=== PATIENT | female | born 1940 | race Caucasian/White ===

== ENCOUNTER 2024-05-27 05:49 | Inpatient (IN) | payer MEDICARE, SELFPAY ==
[2024-05-27] VITALS (42 sets, daily range): BP systolic 69–118; BP diastolic 44–78
[2024-05-27 01:31] LABS: Hematocrit 23.4 % (37.0-47.0); Hemoglobin 8.2 g/dL (12.0-16.0); Mean Corpuscular Hgb 30.4 pg (27.0-31.0); Mean Corpuscular Volume 86.7 fL (81.0-99.0); Platelet Count 119 10^3/uL (130-400); White Blood Cell Count 6.6 10^3/uL (4.8-10.8)
--- NOTE | 2024-05-27 01:38 | EDRN ---
Upon arrival, pt's R ACW dialysis catheter had no dressing. Diane Bentley RN applied tegaderm over site. Pt has a decubitus on sacrum - dressing wet with ramirez/red tinged drainage that was leaking onto pt's diaper. Pt incontinent small amount stool -
perineal care provided. This RN removed dirty packing from sacral wound, placed sterile 4x4s wet with sterile NS in wound and applied optifoam dressing on top. Clean diaper placed. Pt propped on R side with pillow and pillow placed between her
legs. Pt on 4 lpm O2 at all times per report. This RN attempted insertion of IV and blood draw - unable to maintain IV, obtained 2 tubes of blood only. Pressure dressing applied.
[2024-05-27 01:53] LABS: Blood Urea Nitrogen 14 mg/dl (7-17); Calcium 8.2 mg/dl (8.4-10.2); Carbon Dioxide 17 mmol/L (22-30); Chloride 103 mmol/L (98-107); Glucose 84 mg/dl (70-99); Sodium 129 mmol/L (135-145); eGFR 27.96
--- NOTE | 2024-05-27 02:43 | ED.GENMED ---
History of Present Illness
General
Chief Complaint: Heart Rate Problem
Source: ambulance crew
Exam Limitations: dementia
Time Seen by Provider: 05/27/24 02:19
Nursing documentation reviewed up to this point in time: agreed with
History of Present Illness
History of Present Illness:
Per nursing treatment supervisor who called back after leaving several messages, patient was found to have a heart rate in the 30s to low 40s. Blood pressure was also hypotensive at 70/50. Was given atropine by medics. Heart rate came up. Patient does
have a dementia has chronic kidney disease on dialysis. She is on 4 L/min via nasal cannula. She has been hyponatremic lately. She has chronic anemia. History is limited due to patient's baseline mental status.
Review of Systems
Review of Systems
Unable to obtain full review of systems at this time due to: dementia
Other source history: retirement and transfer record
Constitutional: Reports fatigue
Cardiac: Reports palpitations
Psychiatric: Reports anxiety
Phy Exam
General Physical Exam
General Presentation: no apparent distress
General age: appears stated age
General Habitus: elderly
General Mental: confused and usual mental status
General Hydration: appears well hydrated
Cardiovascular Exam
Cardiovascular Exam: regular rate/rhythm
Musculoskeletal Exam
Musculoskeletal Exam: full ROM
Skin Exam
Skin Exam: normal color and warm/dry
Psychiatric Exam
Psychiatric Exam: normal mood/affect
Course
Orders/Labs/Results
Orders:
Orders
05/27/24 00:30
EKG [Electrocardiogram (*1)] Urgent
Reason for Study: Bradycardia / Tachycardia
05/27/24 00:31
EKG- Treatment ONCE
05/27/24 01:20
Basic Metabolic Panel Urgent
Complete Blood Count/With Diff Urgent
Manual Differential Urgent
05/27/24 02:28
Electrocardiogram (*1) Urgent
Reason for Study: Abnormal EKG
EKG- Treatment ONCE
05/27/24 02:43
0.9% Sodium Chloride 500 ml [Nss] 500 ml IV BOLUS
Abnormal Lab Results
05/27/24
01:20
RBC 2.70 L 10^6/uL
(4.20-5.40)
Hgb 8.2 L g/dL
(12.0-16.0)
Hct 23.4 L %
(37.0-47.0)
RDW 18.0 H %
(11.5-14.5)
Plt Count 119 L 10^3/uL
(130-400)
MPV 12.0 H fL
(7.4-10.4)
Segmented Neutrophils 79 H %
(42-75)
Band Neutrophils 17 H %
(0-3)
Lymphocytes (Manual) 1 L %
(20-51)
Sodium 129 L mmol/L
(135-145)
Carbon Dioxide 17 L mmol/L
(22-30)
Creatinine 1.8 H mg/dL
(0.6-1.0)
Calcium 8.2 L mg/dl
(8.4-10.2)
05/27/24 01:20
05/27/24 01:20
Vital Signs
Initial and Last Documented VS:
Initial Vital Signs
Temp Pulse Resp BP Pulse Ox
98.6 F 69 14 82/49 100
05/27/24 01:11 05/27/24 01:11 05/27/24 01:11 05/27/24 01:11 05/27/24 01:11
Last Documented Vital Signs
Temp Pulse Resp BP Pulse Ox
98.6 F 59 18 81/52 100
05/27/24 01:11 05/27/24 04:00 05/27/24 04:00 05/27/24 03:54 05/27/24 02:00
*Critical Care Note
Total Time (30-74mins, 75-104mins- exclusive of procedures): Not Applicable
Update Note
Update Note:
Attempts to call [facility] to get more of the history unsuccessful. Phone goes straight to voicemail after several rings
ED Attending Note
-
Portions of this chart may have been created with voice recognition software.� Occasional wrong word or��sound alike� substitutions may have occurred due to the inherent limitations of voice recognition software.
Discharge Plan
Departure
Patient Disposition: Admit
Date of Disposition: 05/27/24
Time of Disposition: 04:27
Admit to: Telemetry
Presentation/result/management discussed w/ accepting MD/DO: Hospitalist
Discharge Problem:
Symptomatic bradycardia, Anemia, Acute hyponatremia, Acute hypotension
Prescriptions:
No Action
lidocaine 4 % Adhesive Patch,Medicated
1 patch TOPICAL DAILY
Rx Instructions:
apply to L hip
carvedilol [Coreg] 3.125 mg Tablet
3.125 mg PO BID
levothyroxine 75 mcg Tablet
75 mcg PO DAILY
pantoprazole [Protonix] 40 mg Tablet,Delayed Release (Dr/Ec)
40 mg PO DAILY
acetaminophen [Tylenol] 325 mg Tablet
650 mg PO Q6H PRN (Reason: mild pain)
bisacodyl 10 mg Suppository
10 mg UT DAILY PRN (Reason: constipation)
Vashe 0.033 % Irrigation Solution
1 irrig IRRIGATION DAILY PRN (Reason: to buttocks)
Referrals:
Kevyn Tatum MD [Family Provider] -
Interventions
Interventions:
*Risk Screen - Suicide Last Done: 05/27/24 00:32
*General Assessment Last Done: 05/27/24 00:32
*Neglect/Abuse Screening Last Done: 05/27/24 00:32
ED- Fall Risk Assessment Last Done: 05/27/24 01:34
*ED COVID-19 Vaccine History Last Done: 05/27/24 00:32
ED- Cardiac Assessment Last Done: 05/27/24 01:34
ED- Pulmonary Assessment Last Done: 05/27/24 01:34
Discharge Date and Time
Print Language: ISRAELI
[2024-05-27] MEDS: NSS 500 IV (02:55)
[2024-05-27 03:05] LABS: Absolute Neutrophils -Man Diff 6.3 10^3/uL (1.4-6.5); Anisocytosis 1+; Atypical Lymphocytes 1 %; Band Neutrophils 17 % (0-3); Lymphocytes 1 % (20-51); Metamyelocytes 2 % (-); Normal RBC Morphology No; Segmented Neutrophils 79 % (42-75)
[2024-05-27 03:07] LABS: Total Cells Counted 100; Toxic Granulation 1+
[2024-05-27 03:08] LABS: Ovalocytes Occasional
[2024-05-27 03:10] LABS: Acanthocytes Occasional; Schistocytes Occasional; Target Cells 2+
[2024-05-27 03:11] LABS: Platelets Checked Yes
--- NOTE | 2024-05-27 04:02 | EDRN ---
Difficult to obtain BPs because pt has her arms pulled up to her chest and it is difficult to get her to straighten them and to hold still for BP. Attempted BP on leg without success. Pt with unintelligible mumbles. Pt can occasionally answer yes
and no. Pt's oxygen and pulse ox off. Reapplied O2 at 4 lpm, left pulse ox off pt's finger as pt does not keep it on long. Pt repositioned onto L side - pillow between legs and warm blankets provided.
--- NOTE | 2024-05-27 05:09 | HPS.HSE ---
Family Physician
-
Family Physician: Kevyn Tatum MD
Chief Complaint
-
Bradycardia and hypotension
History of Present Illness
Patient is a 83-year-old female with extensive past medical history was brought to the emergency department via EMS from custodial after she was found to be bradycardic and hypotensive.
Patient unable to provide history. She has dementia. History obtained from chart records and from son. She is known to have history of CKD and recently started on dialysis in April, dysphagia, GERD, hypertension hyperlipidemia, chronic atrial
fibrillation
Not anticoagulated, recent admission at [facility] in April for sepsis after a prior admission for hip fracture.
Patient history over the last 1 years been complicated. She has no dementia son reports that the dementia has gotten worse and the patient is mostly alert but not oriented. She occasionally will not recognize the son. Some days are better than
others. She was initially admitted to [facility] for a bowel perforation in July 2013. She had a prolonged hospital course and developed a sacral decubitus ulcer. The sacral decubitus ulcer did heal after discharge from the hospital. In
March she had a hip fracture requiring surgery. After surgery the patient was transferred to rehab. From rehab she developed sepsis and was transferred to [facility] in April. She had sepsis, multiple pulmonary emboli, ABBEY that
developed into ESRD and was started on hemodialysis. For the pulmonary emboli the patient had a IVC filter placed. She received antibiotics and pressors and ultimately improved and was discharged from the hospital to [facility] for rehab. She
gets dialysis Tuesday.
After discussing with the PMD, was told that it was suggested to the son to make the patient do not transfer to hospital/hospice. However the son was not ready. I told me that she has had a significant decline over the 1 year but prior to that had
been in much better health status.
The initial/preceding events prior to being found bradycardic and hypotensive tensive are unknown. She is on Coreg for atrial fibrillation. She is not on any other rate agent. With son reported that he saw her yesterday and she was responsive.
Per EMS the patient was found to be bradycardic to 40 and had a blood pressure of 74/50, after 1 of atropine heart rate went up to 82 with a blood pressure of 110/70. She was immediately transferred to the emergency department. She was also
hypoxic to 84% while she was bradycardic but with a heart rate improvement she is no longer hypoxic.
Initial evaluation in the emergency department showed a blood pressure of 81/50, pulse was 60, respiratory to 18, temp 98.6. ECG showed atrial fibrillation with right bundle at a rate of 59. Initial labs showed a CBC with a white count of 6.6 with
17% bands, hemoglobin was 8.2 and a platelet count [place] 9119, sodium was 129, other electrolytes are acceptable with potassium hemolyzed and repeat pending, BUN and creatinine were 14 and 1.8. Last dialysis was Tuesday 2 days ago.
Medical History
Past Medical History
Past Medical History: Reports Arrhythmia (atrial fibrillation), Dementia, GERD, Hypercholesterolemia, Hypothyroidism and Renal Failure (on HD M/W/F)
Additional Past Medical History:
Bowel perforation s/p resection
Past Surgical History: Reports Bowel Resection and Orthopedic (hip fracture s/p surgery)
Social History
Unable to obtain full social history at this time due to: Dementia
Living: Penitentiary
Employment: Retired
Family History
Family History: Not pertinent
Allergies / Home Medications
Allergies reflects when Allergies were last updated in [employer].
Home Medications with original date entered in [employer]
Allergy/Medication List:
Allergies
Allergy/AdvReac Type Severity Reaction Status Date / Time
atorvastatin Allergy Unknown Verified 05/27/24 00:44
Home Medications
acetaminophen 325 mg tablet (Tylenol) 650 mg PO Q6H PRN mild pain 05/27/24
bisacodyl 10 mg rectal suppository 10 mg UT DAILY PRN constipation 05/27/24
carvedilol 3.125 mg tablet (Coreg) 3.125 mg PO BID 05/27/24
levothyroxine 75 mcg tablet 75 mcg PO DAILY 05/27/24
lidocaine 4 % topical patch 1 patch topical DAILY 05/27/24
pantoprazole 40 mg tablet,delayed release (Protonix) 40 mg PO DAILY 05/27/24
sodium chloride-hypochlorous acid 0.033 % irrigation solution (Vashe) 1 irrig irrigation DAILY PRN to buttocks 05/27/24
Review of Systems
-
Unable to obtain full review of systems at this time due to: Dementia
Physical Exam
Vital Signs
Vital Signs
Temp Pulse Resp BP Pulse Ox
98.6 F 59 18 81/52 100
05/27/24 01:11 05/27/24 04:00 05/27/24 04:00 05/27/24 03:54 05/27/24 02:00
Physical Exam
General: Pain and Appears Chronically Ill
HEENT: NormoCephalic, Anicteric, Atraumatic, PERRLA and No Ptosis; No Oxygen
Cardiac: S1/S2 and Bradycardia
Breast: Deferred by me
GI: Soft, Non Tender, Non Distended and Normal Bowel Sounds
Rectal: Deferred by Provider
Genito-urinary: Deferred by me
Musculoskeletal: No Clubbing, No Cyanosis and No Edema
Skin: Ulcers (10 cm diameter sacral ulcer, stage IV, no drainage, necrotic skin surrounding wound )
Neuro: Awake and Oriented (NOT oriented to person, place or time)
Hematologic/Lymphatic: No Lymphadenopathy
Psych: Apparent Dementia
Laboratory Results
-
05/27/24 01:20
05/27/24 01:20
Laboratory Results
Total Bilirubin Cancelled 05/27/24 01:20
AST Cancelled 05/27/24 01:20
ALT Cancelled 05/27/24 01:20
Alkaline Phosphatase Cancelled 05/27/24 01:20
Troponin I Cancelled 05/27/24 00:42
Data Reviewed
-
Medical Tests (Nuc Med, Echo, EKG etc): Image Personally Visualized and interpreted
Lab Data: Labs Reviewed by me
Old Records: Reviewed
Impression/Plan
-
IMPRESSION:
83 y.o with history of ESRD on HD, AFIB not on AC, PEs s/p IVC filter, GERD, dementia and a rapidly declining health status over one year due to multiple prolonged hospitalizations for a perforated bowel, hip surgery and sepsis presents from nursing
home having been found hypotensive and bradycardic. Responded well to atropine. MAP > 60 here in ED. Afebrile and without focal deficits. Has no complaints. ECG with junctional rhythm/afib at 59. Na 129, K hemolyzed. Bicarb 17, normal AG.
CBC notable for 17% bands, Hgb 8.2. Not sure the etiology of the bradycardia at this point.
PLAN:
1. Bradycardia - No rythm of even available. ECG currently with junctional rhythm/afib at 59. She is on coreg and appeared to have responded to atropine. Discussed with son that patient with dementia, large decubitus non-healing ulcer and h/o PEs
not on AC is not a candidate for pacemaker placements. We hope to correct metabolic factors that may contribute to bradycardia while supporting her bp in the interim. He understood and declined invasive measures such as temp ppm, central lines or
pressors.
- admit to imu
- atropine prn symptomatic bradycardia
- if atropine ineffective or needs repeating, we can start levophed/epinephrine though not a bridge to ppm
- holding coreg
- repeat lytes now for K and mag
- check tsh
- rule out and tx infection as below.
2. Bandemia/Hypotension - Patient with dialysis, has a large sacral wound, minimal urine output. Unclear if sepsis. Maintaining bp currently.
- assume sepsis,
- give LR 500 ml x 1
- blood cultures, urine cultures, viral panel, check lactate level and procalction. Chest Xray
- empiric abx with 1 dose of vanc and zosyn given wound
3. Sacral wound -
- wound care consult, may need surgery to look but unlikely a surgical candidate
4. AFIB
- not on AC, hold beta blockade for bradycardia
5. ESRD - non AG metabolic acidosis. Repeat K pending.
- plan for HD tomorrow depending on K
- appears euvolemic
- nephrology consult
Consider palliative care consult
DVT PPX - heparin sq
Code status - DNR/DNI
--- NOTE | 2024-05-27 05:24 | EDRN ---
VAT paged for new blood orders/iv.
[2024-05-27 05:47] LABS: Urine Albumin 3+ (Neg - Trace); Urine Bilirubin Negative (Negative); Urine Character Cloudy (Clear); Urine Glucose Negative (Negative); Urine Ketone Negative (Negative); Urine Leukocyte 3+ (Negative); Urine Nitrite Negative (Negative); Urine Occult Blood 4+ (Negative); Urine Urobilinogen Negative (Neg - 1+)
[2024-05-27 05:49] LABS: Urine Color Yellow
[2024-05-27 05:54] LABS: COVID-19 Antigen Negative (Negative)
[2024-05-27 06:19] LABS: INR 1.12; PT 14.7 Sec (11.4-14.6)
[2024-05-27 06:24] LABS: Lactic Acid 1.2 mmol/L (0.7-2.0)
[2024-05-27] MEDS: ZOSYN 50 IV ×3 (06:25→18:52)
[2024-05-27 06:30] LABS: ALT (SGPT) 146 U/L (0-35); AST (SGOT) 277 U/L (14-36); Albumin 2.4 g/dl (3.5-5.0); Alkaline Phosphatase 999 U/L (38-126); Blood Urea Nitrogen 15 mg/dl (7-17); Calcium 8.3 mg/dl (8.4-10.2); Carbon Dioxide 20 mmol/L (22-30); Chloride 104 mmol/L (98-107); Direct Bilirubin 4.8 mg/dl (0.0-0.4); Glucose 60 mg/dl (70-99); Magnesium 1.9 mg/dl (1.6-2.3); Potassium 4.7 mmol/L (3.5-5.1); Sodium 130 mmol/L (135-145); Total Bilirubin 6.2 mg/dl (0.2-1.3); Total Protein 4.9 g/dl (6.3-8.2)
[2024-05-27 06:31] LABS: Urine Mucus Many
[2024-05-27 06:32] LABS: Urine Amorphous Seen; Urine Bacteria Many (Negative); Urine Squamous Cell >30 /LPF (Few); Urine White Cell >100 /HPF (0-5)
[2024-05-27 06:36] LABS: Urine Urothelial Cell >30 /LPF (FEW)
[2024-05-27 06:37] LABS: Urine Yeast SEEN (Negative)
[2024-05-27 06:38] LABS: Procalcitonin 1.17 ng/ml (0.0-0.25)
--- NOTE | 2024-05-27 06:38 | EDRN ---
No VAT tonight. This RN started #20g R forearm and obtained additional admission lab work as ordered. This RN then obtained second set blood cultures from R forearm using butterfly needle. Pressure dressing applied. Placed pulse ox on pt's
finger, able to obtain one reading and pt promptly removed it. BP cuff placed on pt's upper R arm (L arm is edematous) - pt unable to hold still for bp reading. Tried to hold pt's arm as still as possible for reading and once obtained removed cuff
since it agitates pt. Pt supine with pillow under lower extremities. Despite being placed supine, pt moves toward left and her head is near stretcher railing so pillow placed to cushion pt head behind and on L side.
[2024-05-27 07:23] LABS: Free T4 1.26 ng/dl (0.78-2.19)
[2024-05-27] MEDS: VANCOCIN 530 MG IV (07:42)
[2024-05-27] MEDS: LR 1000 IV (08:43)
--- NOTE | 2024-05-27 09:07 | PHA.VAN.IN ---
Assessment
- Assessment
Renal Function: Appears elevated from baseline (Scr 1.9)
Concomitant Antimicrobials: Piperacillin/Tazobactam
AUC Dosing Plan
- Empiric Dosing
Initial / Loading Dose: Vanco 1500mg Loading Given on 05/27/24 at 0742
Maintenance Regimen: Dose by level
Plan
- Plan
Monitoring: Random Level 05/28/24 0600
Pharmacokinetics Vancomycin I
- -
Patient Age: 83
Patient Sex: Female
Vancomycin Day #: 1
Indication: Gi / Intra-Abdominal
Requesting Provider: Shahnaz Marshall
Pertinent Antimicrobial Allergies:
No Known Antibiotics Allergies
Height / Weight:
Actual Weight 59.8 kg
- Vital Signs / Lab Results
Temp Pulse Resp BP Pulse Ox
98.6 F 62 16 80/61 100
05/27/24 01:11 05/27/24 07:37 05/27/24 07:37 05/27/24 07:37 05/27/24 07:37
Lab Results - Hematology
05/27/24
01:20
WBC 6.6
Band Neutrophils 17 H
Lab Results - Chemistry
05/27/24 05/27/24 05/27/24
01:20 05:54 05:54
BUN 14 15
Creatinine 1.8 H 1.9 H
Albumin Cancelled Cancelled 2.4 L
05/27/24
05:54
Lactic Acid 1.2
Lab Results - Urine
05/27/24
04:59
Urine Nitrite (Reflex) Negative
Leukocyte Esterase Rfl 3+ A
Urine WBC (Reflex) >100 A
Ur Squamous Epith Cells >30
Urine Bacteria (Reflex) Many A
Microbiology Results
05/27/24 05:28 Influenza Types A & B (DARLEEN) - Final
Nasal Swab Influenza A Positive, NAAT
--- NOTE | 2024-05-27 13:05 | W.PN.UPDATE ---
Addendum entered and electronically signed by Cesar Marshall MD 05/27/24 14:18:
stop continuous fluids
lr bolus as needed
speech eval
Original Note:
Update Note
Progress Note Update
Patient has questionable UTI along with influenza A; ? Infected Wound; obvious sepsis
� Start antibiotics empirically, follow-up MRSA PCR; initiate Tamiflu; follow-up cultures including blood and urine. Judicious IV fluids understanding is HD player; lactate 1.2
-Wound care
-F/u RUQ Sono
Hyponatremia
� Monitor with resuscitation
#ESRD
� Consult HD/renal
#Transaminitis
� Follow-up abdominal ultrasound
� No grimace to palpation upon palpation of the abdomen
#Bradycardia
� Can hold off on cardiology consult secondary to sepsis for now
� TSH elevated although free T4 within normal limits; can restart IV Synthroid after 5 days if cannot tolerate p.o.
� Hold beta-lori
#Sacral wound
� Wound care consult
#Atrial fibrillation
Hold AV mazin blockade
� Not on AC
Discussion of goals of care, hospice appropriate; prognosis poor
#DVT prophylaxis
� HSQ
Total time spent on today's encounter was 51 minutes which included time spent in counseling the patient/family regarding diagnosis and treatment plan as listed above, goals of care, and symptom management. Case was discussed with nursing staff,
specialists, and care coordinators/case management. All labs and imaging personally reviewed by me. Remainder the time spent in detailed review of previous records, lab data, imaging, and other medical provider documentation.
[2024-05-27] MEDS: NSS (PRESERVATIVE FREE) 10 ML IV (13:47)
[2024-05-27] MEDS: PROTONIX IV 40 MG IV (13:47)
[2024-05-27] MEDS: HEPARIN 5000 UNITS SC (13:48)
--- NOTE | 2024-05-27 14:21 | W.CON.NEPH ---
Consultation
-
Date/Time Consultation Requested: May 27, 2024 at 12 PM
Date/Time Consultation Performed: May 27, 2024 at 2 PM
Requesting Provider: Dr. Marshall
Performing Provider: Dr. Troy Chan
Reason for Consultation: End-stage renal disease
Medical History
-
Chief Complaint: Hypotension
History of Present Illness:
83-year-old female with extensive past medical history was brought to the emergency department via EMS from snf after she was found to be bradycardic and hypotensive.
Patient unable to provide history. She has dementia. History obtained from chart records . She is known to have history of CKD and recently started on dialysis in April, dysphagia, GERD, hypertension hyperlipidemia, chronic atrial fibrillation
Not anticoagulated, recent admission at [facility] in April for sepsis after a prior admission for hip fracture.
Apparently from reviewing , she developed sepsis and was transferred to [facility] in April. She had sepsis, multiple pulmonary emboli, ABBEY that developed into ESRD and was started on hemodialysis. For the pulmonary emboli the patient had a
IVC filter placed. She received antibiotics and pressors and ultimately improved and was discharged from the hospital to [facility] for rehab. She gets dialysis Tuesday.
Renal consult for dialysis management.
Past Medical History
h CKD and recently started on dialysis in April, dysphagia, GERD, hypertension hyperlipidemia, chronic atrial fibrillation
Not anticoagulated,
Social History
Tobacco: Non-Smoker
Alcohol: None
Family History
Family History: Not Pertinent
Allergies / Home Medications
Allergy/AdvReac Type Severity Reaction Status Date / Time
atorvastatin Allergy Unknown Verified 05/27/24 00:44
�Medication �Instructions �Recorded �Confirmed �Type
acetaminophen 325 mg tablet 650 mg PO Q6HPRN PRN mild pain 05/27/24 05/27/24 History
(Tylenol)
bisacodyl 10 mg rectal suppository 10 mg GA DAILYPRN PRN constipation 05/27/24 05/27/24 History
carvedilol 3.125 mg tablet (Coreg) 3.125 mg PO BID 05/27/24 05/27/24 History
levothyroxine 75 mcg tablet 75 mcg PO DAILY 05/27/24 05/27/24 History
lidocaine 4 % topical patch 1 patch topical DAILY 05/27/24 05/27/24 History
pantoprazole 40 mg tablet,delayed 40 mg PO DAILY 05/27/24 05/27/24 History
release (Protonix)
sodium chloride-hypochlorous acid 1 irrig irrigation DAILY to 05/27/24 05/27/24 History
0.033 % irrigation solution (Vashe) buttocks
sodium chloride-hypochlorous acid 1 irrig irrigation DAILYPRN PRN 05/27/24 05/27/24 History
0.033 % irrigation solution (Vashe) wound soilage
Review of Systems
-
Unable to obtain full review of systems at this time due to: Dementia and Acuity
Physical Exam
Vital Signs
Vital Signs
Temp Pulse Resp BP Pulse Ox
98.6 F 62 16 80/61 100
05/27/24 01:11 05/27/24 07:37 05/27/24 07:37 05/27/24 07:37 05/27/24 07:37
Lab Results
WBC 6.6 10^3/uL (4.8-10.8) 05/27/24 01:20
RBC 2.70 10^6/uL (4.20-5.40) L 05/27/24 01:20
Hgb 8.2 g/dL (12.0-16.0) L 05/27/24 01:20
Hct 23.4 % (37.0-47.0) L 05/27/24 01:20
Plt Count 119 10^3/uL (130-400) L 05/27/24 01:20
Sodium 130 mmol/L (135-145) L 05/27/24 05:54
Potassium 4.7 mmol/L (3.5-5.1) 05/27/24 05:54
Chloride 104 mmol/L (98-107) 05/27/24 05:54
Carbon Dioxide 20 mmol/L (22-30) L 05/27/24 05:54
BUN 15 mg/dl (7-17) 05/27/24 05:54
Creatinine 1.9 mg/dL (0.6-1.0) H 05/27/24 05:54
eGFR 26.20 05/27/24 05:54
Glucose 60 mg/dl (70-99) L 05/27/24 05:54
Calcium 8.3 mg/dl (8.4-10.2) L 05/27/24 05:54
Kas-Z-Mzgybczjyrm Pept Cancelled 05/27/24 00:42
Albumin 2.4 g/dl (3.5-5.0) L 05/27/24 05:54
Albumin Cancelled 05/27/24 05:54
Physical Exam
HEENT: EOMI
Respiratory: Rhonchi
Cardiac: S1/S2
Abdomen: Soft
Musculoskeletal: No Cyanosis and No Edema
Skin: No Rash
Neuro: Other (Minimal response to verbal or tactile stimuli)
Hematologic/Lymphatic: No Cervical Lymphadenopathy
Psych: Other (Chronic dementia)
Vascular Access: CVC
Data Reviewed
-
Radiology: Image Personally Visualized and interpreted (Interstitial prominence with small pleural effusion left)
Labs: Labs Reviewed by me
Assessment/Plan
-
83-year-old female with extensive past medical history was brought to the emergency department via EMS from snf after she was found to be bradycardic and hypotensive.
History obtained from chart records She is known to have history of CKD and recently started on dialysis in April, dysphagia, GERD, hypertension hyperlipidemia, chronic atrial fibrillation
Not anticoagulated, recent admission at [facility] in April for sepsis after a prior admission for hip fracture.
Impression.
ESRD.
Bradycardia and hypotension.
Sepsis and possible UTI.
Transaminitis= likely hemodynamically mediated.
Chronic atrial fibrillation.
Positive influenza A.
Plan.
Chronic dialysis Tuesday via [facility] since April 2024 per records.= Receives dialysis at [facility]
Continue antibiotics/antiviral.
Okay with IV fluids as indicated for hemodynamics. And monitor pulmonary status.
Dialysis ordered for tomorrow will adjust ultrafiltration based on clinical status.
Goals of care to be discussed.
[2024-05-27] MEDS: LR 500 IV (14:43)
--- NOTE | 2024-05-27 15:00 | PTCARENOTE ---
Pt arrived to floor on stretcher from ED. Pt currently non-verbal, does not track, and does not follow commands - Hx of Dementia, but not Pt's baseline. Pulled over to bed without issue. LR @ 75ml's/hr infusing into RFA; 500ml LR bolus started
as per transfer orders. BP's soft, 71/61 with MAP of 66. Provider notified and will provide pressors if MAP < 65. Scattered bruising noted with large sacral decub packed and covered with silicone foam dressing. Unable to get oral or axillary
temp; Rectal temp = 90.9; Orders for vanessa hugger obtained. Bed alarm on, call rolle within reach. Will continue to monitor and assess.
[2024-05-27] MEDS: LEVOPHED 250 IV (18:40)
[2024-05-27] MEDS: HEPARIN SC (19:57)
[2024-05-28] VITALS (67 sets, daily range): BP systolic 71–143; BP diastolic 34–96
[2024-05-28] MEDS: ZOSYN 50 IV ×4 (00:57→22:04)
--- NOTE | 2024-05-28 02:27 | PTCARENOTE ---
Rec'd pt. minimally responsive at beginning of shift, NSR, Levophed infusing at 5 mcg/min. MAPS remained consistently >65 x 4 hours; attempted to wean down Levo to 4 mcg at midnight but pt. did not tolerate (MAP dropped to 56); increased back to 5
mcg/min at 0040 and pressure has since held. Temperature also up to 97.6 at beginning of shift, vanessa hugger removed, temps remain >97. Of note pt. has become more alert over course of night, moans, groans, does not like to be touched, moving arms
frequently. B/L rhonchi present with moist occasional cough, pulse ox on 2L mid 90's, suctioned for clear secretions. Resting quietly.
[2024-05-28] MEDS: LEVOPHED 250 IV (07:32)
[2024-05-28] MEDS: NSS (PRESERVATIVE FREE) 10 ML IV (07:59)
[2024-05-28] MEDS: PROTONIX IV 40 MG IV (07:59)
[2024-05-28] MEDS: HEPARIN 5000 UNITS SC ×2 (07:59→22:17)
--- NOTE | 2024-05-28 08:47 | VATNOTE ---
L arm swelling noted by pt's primary RN. Pt has capped IV in L arm. L arm IV D/C'd and U/S requested for L arm. IV restarted in R arm. Will continue to monitor.
[2024-05-28 08:53] LABS: Hematocrit 21.4 % (37.0-47.0); Mean Corp Hgb Conc. 32.7 g/dL (33.0-37.0); Mean Corpuscular Hgb 29.8 pg (27.0-31.0); Mean Corpuscular Volume 91.1 fL (81.0-99.0); Mean Platelet Volume 9.9 fL (7.4-10.4); Platelet Count 108 10^3/uL (130-400); Red Blood Cell Count 2.35 10^6/uL (4.20-5.40); Red Cell Dist. Width 18.8 % (11.5-14.5); White Blood Cell Count 12.3 10^3/uL (4.8-10.8)
[2024-05-28 09:05] LABS: Vancomycin Random 11.9 ug/ml
--- NOTE | 2024-05-28 09:25 | PTOTSP ---
Dysphagia Evaluation
Patient inappropriate for oral PO at this time due to a combination of wet vocal quality with difficulty clearing secretions, confusion, and refusal/oral defensiveness. Acute on chronic risk factors noted (i.e., UTI?, influenza A, PNA, sepsis;
dementia, dysphagia, GERD).
Plan of care:
1. Temporary NPO
2. Medications - non-oral
3. Oral care 3-5x daily with suctioning
4. Aspiration Risk Hydration Protocol - inappropriate
5. Dysphagia tx at the acute care level to determine if/when able to initiate diet pending GOC.
--- NOTE | 2024-05-28 09:38 | W.PN.HOSP.TC ---
Today's Communication/Plan
-
see note
GI/GS/ID consult
poor prognosis, ongoing GOC discussion
Assessment / Plan
Assessment / Plan
1. Sepsis with septic shock
Gram-negative bacteremia
-Possible source of urinary tract infection versus sacral decubitus vs HD cath infection
-Currently on Zosyn
-Follow blood culture report
-Patient requiring Levophed support, wean off as possible
-ID has been asked for further help
2. ESRD on hemodialysis
-Recently started in May 05
-Nephrology following and based on clinical findings/lab we will hold dialysis today
3. Acute normocytic anemia
Reported PUD/perf
-Reported history of perforated gastric ulcer last year, records requested from previous hospital
-Hemoglobin drifted down to 7 today, 1 unit PRBC ordered
-Monitor for any GI blood loss
-Not on AC
4. Influenza A infection
-CXR reviewed
-unable to take oral tamiflu
5. Hypoglycemia
-Sepsis/decreased oral intake related
-D50 followed by D10 ordered for low blood glucose in the morning, repeat periodic accuchecks
6. Left sided pleural effusion
-Per verbal report from family this is a known finding
-Chest x-ray reviewed and possible component of trapped lung
-Will order further testing based on previous hospital records review
7. Stage IV Sacral decubitus - POA
-See wound RN note for further detail
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
-Poor prognosis
8. UTI
-covered with zosyn, f/u urine cs report
9. R/o Chronic cholecystitis
Acute transaminitis
Jaundice - direct dominant
-GB US showing hydropic GB
-CBD 9.5mm
-GS/GI consulted and likely will need cholecystostomy tube
DNR
Heparin subq
05/28 GOC discussion done over the phone with patient's son, who is still hopeful that patient will improve. I have clarified that patient had a multitude of medical issues ongoing and with overall downward trend in quality of life patient getting
appropriate to be on hospice. Plan to rediscuss based on patient clinical course.
Prognosis is poor in my opinion.
Total critical care time 43 mins . Total critical care time documented does not include time spent on separately billed procedures or the services of residents, students, nurses or physician assistants. I personally saw and examined the patient. I
have reviewed all diagnostic interpretations and treatment plans as written. I was present for the arroyo portions of any procedures performed and the inclusive time noted in any critical care statement. Critical care time includes patient management
by me, time spent at the patients bedside, time to review lab and imaging results, discussing patient care, documentation in the medical record, and time spent with the family or caregiver.
Anticipated Discharge: > 48 hours
Subjective/Interval History
-
Date of Service: May 28, 2024
Remains encephalopathic
Hypoglycemic in the morning
Requires vasopressor for blood pressure support
No reported melena
Objective Data
-
Labs:
Laboratory Results
05/28/24
08:40
WBC 12.3 H
Hgb 7.0 L
Hct 21.4 L
Plt Count 108 L
Sodium Pending
Potassium Pending
Chloride Pending
Carbon Dioxide Pending
BUN Pending
Creatinine Pending
Glucose Pending
Calcium Pending
Total Bilirubin Pending
AST Pending
ALT Pending
Alkaline Phosphatase Pending
Vital Signs:
Vital Signs
Temp Pulse Resp BP Pulse Ox
97.4 F 74 18 78/47 93
05/28/24 07:29 05/28/24 08:48 05/28/24 08:48 05/28/24 08:52 05/28/24 08:48
I&O
0205/28/24 05/29/24
06:59 06:59 06:59
Intake Total 500 / 500 320 / 320
Output Total 250 / 250
Balance 250 / 250 320 / 320
Review of Systems
-
Unable to obtain full review of systems at this time due to: Acuity
Physical Exam
-
General: Comfortable
HEENT: Negative Oxygen
Respiratory: Clear to Auscultation
Cardiac: Regular Rhythm and S1/S2; Negative Murmur or Rub
GI: Soft, Nontender and Nondistended
Musculoskeletal: No Edema
Neuro: Negative Oriented
Psych: Confused
[2024-05-28 09:41] LABS: ALT (SGPT) 209 U/L (0-35); AST (SGOT) 399 U/L (14-36); Albumin 2.3 g/dl (3.5-5.0); Alkaline Phosphatase 1013 U/L (38-126); Blood Urea Nitrogen 16 mg/dl (7-17); Calcium 8.5 mg/dl (8.4-10.2); Carbon Dioxide 17 mmol/L (22-30); Chloride 103 mmol/L (98-107); Glucose 51 mg/dl (70-99); Magnesium 1.9 mg/dl (1.6-2.3); Potassium 4.2 mmol/L (3.5-5.1); Sodium 130 mmol/L (135-145); Total Bilirubin 7.2 mg/dl (0.2-1.3); Total Protein 4.7 g/dl (6.3-8.2); eGFR 20.83
--- NOTE | 2024-05-28 09:56 | WOUNDNOTE ---
R CALF (LATERAL LOWER)
--- NOTE | 2024-05-28 10:00 | WOUNDNOTE ---
[facility] RN note: Patient admitted with symptomatic bradycardia. Patient admitted from [facility].
See H&P for complete history.
PMH: dementia, CKD on HD, dysphagia, HTN, A fib, hospital stay at [facility] for sepsis, hip fracture, IVC filter, sacral pressure injury.
Wound Location and type/assessment: Patient admitted with: large stage 4 pressure injury probes to bone, pink with black necrotic tissue and local erythema and stage 2 pressure injuries. R lower lateral calf DTI. R posterior thigh and R groin
bruise. +Anasarca. R wrist scabbed dermal abrasion. Upper ear crease red and intact. Mild alize MASD.
Appetite: NPO. ST on consult.
Pressure redistribution devices in place: Centrella Max air bed. Patient cannot turn self in bed.
Plan: Sacral dressing changed. Patient turned to R semi side lying position with help from BONNIE Patel. Heels off bed with pillow and air chair cushion. Dr. Huang was in who assess sacral ulcer. Suspect possible sacral osteomyelitis d/t bone
exposure. Hospitalist approved local care. Discussed with BONNIE Patel. Dr. Huang to discuss goals with son.
Care plan to be updated and will follow as needed.
Note to case management of equipment requested for discharge: Air mattress if not already in place at SNF.
Recommend follow up at wound care center upon discharge if appropriate.
--- NOTE | 2024-05-28 10:10 | CON.ID ---
Consultation
-
Date/Time Consultation Requested: 05/28/2024 0928
Date/Time Consultation Performed: 05/28/2024 1005
Requesting Provider: Dr. Huang
Performing Provider: Dr. Vera
Reason for Consultation: Bacteremia
Chief Complaint / Past History
History of Present Illness
Jo Noland is an 83-year-old female being evaluated at the request of Dr. Ferris in regards to bacteremia. History is obtained from chart review alone as patient has an underlying history of dementia.
The patient has a complex medical history that includes ESRD�HD, dementia along with atrial fibrillation. She presented to [facility] ER on 05/27, having been sent on by her shelter secondary to bradycardia in the 30s at the facility.
At the time of evaluation by EMS her blood pressure was low (74/50) and pulse was in the 40s.
Workup in the emergency room revealed positive influenza A testing. Blood cultures obtained at the time of admission are now positive for gram-negative rods, and Infectious Diseases is asked to comment on further antimicrobial therapy.
Past History
Additional Past Medical History:
A-fib
Dementia
GERD
Dyslipidemia
Hypothyroidism
ESRD on HD (M/W/F)
Additional Past Surgical History:
Hx bowel resection
IVC filter
Hip fracture
Allergy History:
atorvastatin Allergy (Verified 05/27/24 00:44)
Unknown
Medications Reviewed: Yes
Social History
Living: [facility]
Employment: Not Employed
Family History
Family History: Unable to Obtain
Review of Systems
Vital Signs
Temp Pulse Resp BP Pulse Ox
97.4 F 74 18 78/47 93
05/28/24 07:29 05/28/24 08:48 05/28/24 08:48 05/28/24 08:52 05/28/24 08:48
Physical Exam
Physical Exam
Constitutional: Comfortable, Acutely Ill, Chronically Ill and Non-toxic
Head: Normocephalic
Eyes: Pupils Equal, Pupils Round, No Conjunctival Hemorrhage and Sclera Anicteric
Cardiovascular: Regular Rate and S1/S2; Negative S3/S4
Pulmonary: Symmetric, Coarse and Non Labored
Gastrointestinal: Soft, Non Tender, Non Distended and Normal Bowel Sounds
Genito-Urinary: Negative Shrestha
Extremities: Negative Edema, Cyanosis or Erythema
Wound: Other (large stage IV sacral decubidi with dermal necrosis noted in several areas. Positive significant malodor.)
Neurological: Other (Responsive to touch.)
Psychological: Calm and Confused
.
Lab / Diagnostic Study Results
05/28/24 08:40
05/28/24 08:40
Total Counted 100 05/27/24 01:20
Abs Neuts (Manual) 6.3 10^3/uL (1.4-6.5) 05/27/24 01:20
Segmented Neutrophils 79 % (42-75) H 05/27/24 01:20
Band Neutrophils 17 % (0-3) H 05/27/24 01:20
Lymphocytes (Manual) 1 % (20-51) L 05/27/24 01:20
PT 14.7 Sec (11.4-14.6) H 05/27/24 05:54
INR 1.12 05/27/24 05:54
Lactic Acid 1.2 mmol/L (0.7-2.0) 05/27/24 05:54
Procalcitonin 1.17 ng/ml (0.0-0.25) H 05/27/24 05:54
Ur Squamous Epith Cells >30 /LPF (Few) 05/27/24 04:59
Microbiology Results
Micro:
05/27/24 06:21 Blood Culture - Preliminary
Blood/Venous Positive culture in progress
Gram Stain - Preliminary
05/27/24 05:54 Blood Culture - Preliminary
Blood/Venous Positive culture in progress
Gram Stain - Preliminary
05/27/24 18:37 MRSA Screen - Pending
Nose
05/27/24 06:03 Nasal Screen MRSA (PCR) - Final
Nose MRSA not detected - performed by PCR methodology.
05/27/24 05:28 Influenza Types A & B (DARLEEN) - Final
Nasal Swab Influenza A Positive, NAAT
05/27/24 04:59 Urine Culture - Pending
Urine
Imaging:
05/27/2024 CXR (portable): Moderate to large left pleural effusion with probable underlying compressive atelectasis in the left lower lung. Mild acute versus chronic interstitial airway disease at the right lung base.
Assessment / Plan
Influenza A infection
Leukocytosis
Bacteremia with gram-negative rods
� Sources include right ACW HD cath, large sacral decubiti, other
Transaminitis
Elevated procalcitonin
Large partially necrotic sacral decubidi
A-fib
Dementia
GERD
Dyslipidemia
Hypothyroidism
ESRD on HD (M/W/F)
Recommendation:
Continue with oseltamavir. Given depressed mental status, may require NG/Dobbhoff administration.
Continue with empiric Zosyn. Dose is appropriate for hemodialysis.
Discontinue further vancomycin for the present. Can add back if MRSA recovered.
Consider general surgery evaluation for wound debridement.
Await further culture data to guide antimicrobial therapy selection and potential de-escalation
Local care to the sacral wound for now.
Trend LFTs
Agree with discussions of goals of care.
Given current clinical presentation of patient (dementia, large sacral decub (which has little chance of ever closing)), patient appears hospice appropriate.
Aggressive medical care will not change overall quality of life in any meaningful way.
[2024-05-28] MEDS: DEXTROSE 50% SYRINGE 12.5 GRAMS IV (10:11)
[2024-05-28 10:38] LABS: Glucose - Point of Care 117 mg/dl (70-99)
[2024-05-28] MEDS: D10W 1000 IV (11:07)
--- NOTE | 2024-05-28 12:22 | W.PN.NEPH.PH ---
Today's Communication / Plan
-
HD postponed to tomorrow due to unstable hemodynamics
Assessment/Plan
-
83-year-old female with extensive past medical history was [facility] after she was found to be bradycardic and hypotensive.
History obtained from chart records She is known to have history of CKD and recently started on dialysis in April, dysphagia, GERD, hypertension hyperlipidemia, chronic atrial fibrillation
Not anticoagulated, recent admission at [facility] in April for sepsis after a prior admission for hip fracture.
Impression.
ESRD.
Bradycardia and hypotension.
Sepsis and possible UTI.
Transaminitis= likely hemodynamically mediated.
Chronic atrial fibrillation.
Positive influenza A.
Anemia
Plan.
Chronic dialysis Tuesday via [facility] since April 2024 per records.= Receives dialysis at [facility]
due to unstable hemodynamics HD held, will try tomorrow
no emergent need today, lytes acceptable
Continue antibiotics/antiviral per ID
wean pressors as able, ok for PRBC , monitor pulm status on 2lit O2
hypoglycemia on [id number] when BG stabilizes
LFTs increasing likely shock liver, monitor
Goals of care to be discussed-primary team speaking with POA.
high risk encounter
-
-
Date of Service: May 28, 2024
CC / HPI / ROS
-
Chief Complaint:
ESRD
History of Present Illness:
hb low 7-decreasing, plt low 108, BG low 51 his am , D10 started
hypotensive and on pressors
sodium low 1300
flu +ve, bld cx GNB
Review of Systems:
altered and unable to provide history
no fever, on 2lit O2
Labs
-
Labs:
WBC 12.3 10^3/uL (4.8-10.8) H 05/28/24 08:40
RBC 2.35 10^6/uL (4.20-5.40) L 05/28/24 08:40
Hgb 7.0 g/dL (12.0-16.0) L 05/28/24 08:40
Hct 21.4 % (37.0-47.0) L 05/28/24 08:40
Plt Count 108 10^3/uL (130-400) L 05/28/24 08:40
Sodium 130 mmol/L (135-145) L 05/28/24 08:40
Potassium 4.2 mmol/L (3.5-5.1) 05/28/24 08:40
Chloride 103 mmol/L (98-107) 05/28/24 08:40
Carbon Dioxide 17 mmol/L (22-30) L 05/28/24 08:40
BUN 16 mg/dl (7-17) 05/28/24 08:40
Creatinine 2.3 mg/dL (0.6-1.0) H 05/28/24 08:40
eGFR 20.83 05/28/24 08:40
Glucose 51 mg/dl (70-99) L* 05/28/24 08:40
Calcium 8.5 mg/dl (8.4-10.2) 05/28/24 08:40
Umb-D-Dbuamgumjms Pept Cancelled 05/27/24 00:42
Albumin 2.3 g/dl (3.5-5.0) L 05/28/24 08:40
Physical Exam
-
Vital Signs:
Vital Signs
Temp Pulse Resp BP Pulse Ox
97.0 F 75 15 134/70 99
05/28/24 11:53 05/28/24 11:45 05/28/24 11:45 05/28/24 11:45 05/28/24 11:45
Cardiovascular:: Regular rate and rhythm
Respiratory:: Bilateral: Coarse
Lung Excursion:: Abnormal
Abdomen:: Nontender and Soft
Extremity Edema:: +1: Bilateral:
Shrestha Catheter: No
[2024-05-28 12:46] LABS: Glucose - Point of Care 117 mg/dl (70-99)
--- NOTE | 2024-05-28 13:52 | PTCARENOTE ---
Patient placed on vanessa hugger due to rectal temp of 96.[address] Gamal Huang made aware. Care ongoing.
--- NOTE | 2024-05-28 14:21 | CON.GI ---
Addendum entered and electronically signed by Adán Arevalo MD 05/28/24 17:57:
D/w Dr. Huang - dissection stable.
Too unstable for further testing.
Addendum entered and electronically signed by Adán Arevalo MD 05/28/24 17:01:
The patient was seen and examined by me independently in collaboration with the nurse practitioner.
Past medical history/social history/medications/allergies/family history reviewed.
Lab data and imaging data reviewed.
83 yo F multiple medial issues as below here with bradycardia, hypotension, change in MS. Found to have abnormal LFTs US with unremarkable liver, hydropic GB reflecting chronic cholecystitis, CBD top normal with intraluminal sludge. Concern for
biliary source for infection so GI was consulted. D/w Dr. Huang hospitalist and Dr. Savage patient not stable for MRI (hypotensive on pressors, AMS) so sent for CT. Concern for aortic dissection - hospitalist to contact vascular.
Original Note:
Consultation
-
Date/Time Consultation Requested: 05/28/24 1350
Date/Time Consultation Performed: 05/28/24 1420
Requesting Provider: radha Huang MD
Performing Provider: KENNETH Lobato, Samantha Arevalo MD
Reason for Consultation: increased LFT's
Medical History
Chief Complaint / HPI
Chief Complaint: hypotension, change in mental status
History of Present Illness:
Pt is a 83yo with multiple medical issues CHF, AZ, GERD, ischemic CM, dementia , UTI's, cervical mass, anemia, afib not on AC, 05/2023 perf stomach ulcer with repair with compilation of Lower Gi bleed with rectal ulcer with clip and epi during
admission, DVT's, s/p fall with hip fracture 03/2024 ORIF and LE hematoma, PNA, new ESRD with HD with recurrent hospital admission over last year to [facility]. She recently moved to SNF locally due to dialysis and now presents to
with bradycardia, hypotension and change in mental status. . Pt unable to give history. Per son No hx liver issues. Unsure of bacteremia but has had UTI's in past. Hx dysphagia on pureed diet, + GERD on PPI, occasional nausea no vomiting, no
abdominal pain, diarrhea, constipation or rectal bleeding. ? hx EGD after perforation. No hx colonoscopy. No NSAID use or H pylori per family. On return bili 6.2, d bili 4.8, AST 277, ALT 146, alk phos 999. lipase 13 WBC with rise to 12.3
after admission, hbg 7, platelet 108. Na 130, K 4.2, creat 2.3 glucose 51, procal 1.17. US with unremarkable liver, hydropic GB reflecting chronic cholecystitis, CBD top normal with intraluminal sludge. 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
cm, b/l pleural effusion.
05/07/24- [facility] labs with steffanie 1.6, AST15, ALT 10, alk phos 203.
Past Medical History
Past Medical History: Arrhythmias (afib ), CHF, GERD, HTN, Hypercholesterolemia, AZ, Renal Failure (CKD with recent start of HD) and Other (dementia, dysphagia, recent hip fx, PE with filter in place, cervical mass, CM, UTI with noted bacteremia
with proteus/strep with CTX-M gene resistance and U cx + klebsiella )
Past Surgical History: Other (05/2023 perforated stomach ulcer with javier patch repair, complicated by GI bleed with rectal ulcer with clipped and injected with epi)
Social History
Tobacco: Non-Smoker
Alcohol: None
Drug: None
Living: [facility]
Family History
Family History: Other (no hx GI problems- colon CA, polyps, pancreatic or liver issues. )
Allergies / Home Medications
Allergy/AdvReac Type Severity Reaction Status Date / Time
atorvastatin Allergy Unknown Verified 05/27/24 00:44
�Medication �Instructions �Recorded
acetaminophen 325 mg tablet 650 mg PO Q6HPRN PRN mild pain 05/27/24
(Tylenol)
bisacodyl 10 mg rectal suppository 10 mg DC DAILYPRN PRN constipation 05/27/24
carvedilol 3.125 mg tablet (Coreg) 3.125 mg PO BID Blood Pressure 05/27/24
levothyroxine 75 mcg tablet 75 mcg PO DAILY Thyroid 05/27/24
lidocaine 4 % topical patch 1 patch topical DAILY Pain 05/27/24
pantoprazole 40 mg tablet,delayed 40 mg PO DAILY GERD 05/27/24
release (Protonix)
sodium chloride-hypochlorous acid 1 irrig irrigation DAILY to 05/27/24
0.033 % irrigation solution (Vashe) buttocks
sodium chloride-hypochlorous acid 1 irrig irrigation DAILYPRN PRN 05/27/24
0.033 % irrigation solution (Vashe) wound soilage
Review of Systems
-
History Source: Patient and Family
Constitutional: Reports Weight Loss (with multiple admissions)
EENT: Reports No Symptoms
Respiratory: Reports Trouble Breathing (in PNA )
Cardiac: Reports No Symptoms and Chest Pain
Abdomen/GI: Reports Constipated
: Reports Other (new HD )
Musculoskeletal: Reports No Symptoms
Skin: Reports No Symptoms
Neurological: Reports Weakness
Endocrine: Reports No Symptoms
Hematologic/Lymphatic: Reports No Symptoms
Vital Signs
Temp Pulse Resp BP Pulse Ox
96.0 F L 75 27 92/55 96
05/28/24 14:00 05/28/24 14:00 05/28/24 14:00 05/28/24 14:00 05/28/24 14:00
Physical Exam
Exam
General: Other (ill appearing )
HEENT: Normocephalic and Anicteric
Respiratory: Clear
Cardiac: Regular Rhythm
GI: Soft
Skin: Warm and Dry
Neuro: Other (lethargic minimal verbal )
Psych: Calm
Results
WBC 12.3 10^3/uL (4.8-10.8) H 05/28/24 08:40
Hgb 7.0 g/dL (12.0-16.0) L 05/28/24 08:40
Hct 21.4 % (37.0-47.0) L 05/28/24 08:40
MCV 91.1 fL (81.0-99.0) 05/28/24 08:40
Plt Count 108 10^3/uL (130-400) L 05/28/24 08:40
PT 14.7 Sec (11.4-14.6) H 05/27/24 05:54
INR 1.12 05/27/24 05:54
Sodium 130 mmol/L (135-145) L 05/28/24 08:40
Potassium 4.2 mmol/L (3.5-5.1) 05/28/24 08:40
Chloride 103 mmol/L (98-107) 05/28/24 08:40
Carbon Dioxide 17 mmol/L (22-30) L 05/28/24 08:40
BUN 16 mg/dl (7-17) 05/28/24 08:40
Creatinine 2.3 mg/dL (0.6-1.0) H 05/28/24 08:40
Calcium 8.5 mg/dl (8.4-10.2) 05/28/24 08:40
Total Bilirubin 7.2 mg/dl (0.2-1.3) H 05/28/24 08:40
AST 399 U/L (14-36) H 05/28/24 08:40
ALT 209 U/L (0-35) H 05/28/24 08:40
Alkaline Phosphatase 1013 U/L (38-126) H 05/28/24 08:40
Diagnostic Image Results:
05/27/24 US abdomen
Unremarkable sonographic appearance of the liver.
Hydropic gallbladder. Findings, as described, likely reflecting chronic cholecystitis.
The common bile duct is top normal for patient age, with evidence of intraluminal sludge.
Atrophic, echogenic kidneys consistent with history of renal failure. Renal cysts.
Aortic atherosclerosis with diffuse ectasia and mid aortic aneurysm measuring up to 4.6 cm.
Incidental bilateral pleural effusions.
04/15/24 CT angio creswell
Large hematoma in the right medial upper thigh. No sign of active contrast extravasation into the hematoma. Other findings are unchanged from previous exam.
Prior GI Procedures:
EGD: ? with perforated ulcer
Colonoscopy: ? in past
Assessment / Plan
-
Pt is a 83yo with multiple medical issues CHF, AZ, GERD, ischemic CM, dementia , UTI's, cervical mass, anemia, afib not on AC, 05/2023 perf stomach ulcer with repair with compilation of Lower Gi bleed with rectal ulcer with clip and epi during
admission, DVT's, s/p fall with hip fracture 03/2024 ORIF and LE hematoma, PNA, new ESRD with HD with recurrent hospital admission over last year to [facility]. She recently moved to SNF locally due to dialysis and now presents to
with bradycardia, hypotension and change in mental status. Pt unable to give history. Per son No hx liver issues. Unsure of bacteremia but has had UTI's in past. On return bili 6.2, d bili 4.8, AST 277, ALT 146, alk phos 999. lipase 13 WBC
with rise to 12.3 after admission, hbg 7, platelet 108. Na 130, K 4.2, creat 2.3 glucose 51, procal 1.17.
05/07/24- [facility] labs with steffanie 1.6, AST15, ALT 10, alk phos 203.
-sepsis/bacteremia- gram neg /hypothermia/ hypotension
-elevated LFT's
-flu A +
-s/p fall - ORIF hip 03/2024
-hx large hematoma right thigh 04/2024
-ESRD newly on HD
-prior hx UTI with noted bacteremia with proteus/strep with CTX-M gene resistance and U cx + klebsiella-- per epic chart
-perforated gastric ulcer with ex lap grahm patch and Lower GI bleed with rectal ulcer with clip placed 05/2023
PLAN:
etiology of elevated LFT's related to sepsis (with hx prior UTI/bacteremia) , flu related, biliary source vs other
lipase normal
for CT today
reviewed with Dr. Savage
for ID eval
cont NPO
cont IV Zosyn and Tamiflu with + flu
pt remain DNR - reviewed with son pt is critically ill and would not be able to proceed with for MRI or GI testing at this time can consider if improves from sepsis standpoint
reviewed epic chart per son's shareeverywhere access
-
-
Thank you for consultation and allowing me to participate in the patient's care. Please call the software validation technician GI physician during the after hours with any questions or concerns.
[2024-05-28 14:43] LABS: Glucose - Point of Care 125 mg/dl (70-99)
[2024-05-28 14:43] LABS: Lipase 13 U/L (23-300)
--- NOTE | 2024-05-28 14:50 | WOUNDNOTE ---
WOC RN note: t/c [facility], Spoke with nurse Sayda who confirmed patient has an air mattress at [facility].
--- NOTE | 2024-05-28 16:47 | CM ---
Addendum entered by Nicole Rondon RN 05/28/24 17:04:
GOC discussion in progress per Dr Huang's notes.
Addendum entered by Nicole Rondon RN 05/28/24 17:01:
Seen by wound care nurse - will need air mattress at SNF. - Info added to SNF referral.
Original Note:
Patient from [facility] with Hx ESRD on HD, dementia. O2 2L. Receiving IVF, Levophed gtt, IV Abx. ST Eval- NPO. Lethargic, garbled speech per nurse assessment.
Spoke with Michelle, [facility];
the patient was admitted to their SNF recently for short term rehab with the intention for transition to LTC.
The patient has dementia and some confusion.
She was receiving skilled rehab - no further details available about her current mobility.
The patient receives HD MWF.
The for report [phone], fax [phone].
Plan follow patient's progress with for diet.
Plan follow up with patient/son Wu about return to [facility].
Plan return to [facility] when medically ready.
--- NOTE | 2024-05-28 17:19 | W.PN.UPDATE ---
Addendum entered and electronically signed by Gamal Huang MD 05/28/24 17:53:
CTA c/a/p report from [facility]
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 Celiac trunk and mesenteric arteries: No occlusion or significant stenosis. Renal arteries: No occlusion or significant stenosis. Right iliac
arteries: No occlusion or significant stenosis. Left iliac arteries: No occlusion or significant stenosis. '
Addendum entered and electronically signed by Gamal Huang MD 05/28/24 17:46:
Patient son was able to share read access to patient epic chart
Discharge summary reviewed and thoracic and abd aortic aneurysm is known findings.
Holding vasc sx consult and ICU transfer for now.
Original Note:
Update Note
Progress Note Update
Contacted by radiologist re: Ms Noland's CT a/p showing incidental aortic dissection
Acuity is unknown
Discussed with nephro/vasc sc/respiratory care practitioner and son
Plan is to get CTA angio chest/abd/pelvis to better define aortic anatomy
I have discussed with son potential of renal toxicity with need of contrast but without contrast vasc sx will not be able to make any further clear recommendation.
Patient was requiring levophed in the morning for shock and ideally assuming this is a Type B dissection - BB would be used but with shock possibly will need to wean off pressors. SBP apparently in 140-150 after blood transfusion in morning and
currently on levophed 2mcg/min per RN, would wean off with SBP goals < 130.
Further critical care time spent : 35 mins
--- NOTE | 2024-05-28 17:49 | PTCARENOTE ---
Patient AOx0. Patient is lethargic, agitated, flat affect, and uncooperative. Patient has garbled speech. Bed alarm on and audile. 4L NC. NSR with BBB and first degree on monitor. Levo gtt titrated per order. R sided JVD. Rectal temp probe with vanessa
hugger utilized PRN per order. Patient is oliguric due to ESRD. Strict NPO per speech. Wound care completed with wound care nurse. Patient hypoglycemic during shift. Hypoglycemic protocol followed. Call rolle within reach, bed in lowest position, and
bed of wheels locked.
--- NOTE | 2024-05-28 20:27 | CON.GS ---
Consultation
-
Date/Time Consultation Requested: 05/28/2024 3 PM
Date/Time Consultation Performed: 05/28/2024 4 PM
Requesting Provider: Dr. Huang
Performing Provider: Dr. Savage
Reason for Consultation: Distended gallbladder
Medical History
-
Chief Complaint: Altered mental status
History of Present Illness:
This is an 83-year-old female with multiple medical comorbidities including CHF, perforated ulcer, UTI, GERD, ischemic cardiomyopathy, dementia, aortic dissection, cervical mass, DVT, pneumonia, ESRD on hemodialysis, A-fib not on anticoagulation.
She recently had a perforated stomach ulcer for which she had surgical repair followed by what sounds like a lower GI bleed with a rectal ulcer who presents to us from her outside facility with altered mental status and found to have bacteremia as
well as bilirubinemia and elevated LFTs. An ultrasound of the liver demonstrated a hydropic gallbladder and common bile duct dilatation to 9.5 mm without evidence of stone disease. General surgery consulted to comment and possibly manage this.
Unfortunately patient is a very poor historian, and much of my history was obtained from her chart.
Past Medical History
Past Medical History: Other ( See HPI)
Past Surgical History: Other ( See HPI)
Social History
Living: Alf
Family History
Family History: Reviewed & Not Pertinent
Allergies / Home Medications
Allergy/AdvReac Type Severity Reaction Status Date / Time
atorvastatin Allergy Unknown Verified 05/27/24 00:44
�Medication �Instructions �Recorded �Confirmed �Type
acetaminophen 325 mg tablet 650 mg PO Q6HPRN PRN mild pain 05/27/24 05/27/24 History
(Tylenol)
bisacodyl 10 mg rectal suppository 10 mg SD DAILYPRN PRN constipation 05/27/24 05/27/24 History
carvedilol 3.125 mg tablet (Coreg) 3.125 mg PO BID Blood Pressure 05/27/24 05/27/24 History
levothyroxine 75 mcg tablet 75 mcg PO DAILY Thyroid 05/27/24 05/27/24 History
lidocaine 4 % topical patch 1 patch topical DAILY Pain 05/27/24 05/27/24 History
pantoprazole 40 mg tablet,delayed 40 mg PO DAILY GERD 05/27/24 05/27/24 History
release (Protonix)
sodium chloride-hypochlorous acid 1 irrig irrigation DAILY to 05/27/24 05/27/24 History
0.033 % irrigation solution (Vashe) buttocks
sodium chloride-hypochlorous acid 1 irrig irrigation DAILYPRN PRN 05/27/24 05/27/24 History
0.033 % irrigation solution (Vashe) wound soilage
Review of Systems
-
A 10 point review of systems was completed, and was negative except as per HPI.
Physical Exam
Vital Signs
Temp Pulse Resp BP Pulse Ox
97.2 F 67 18 101/64 99
05/28/24 20:20 05/28/24 18:30 05/28/24 18:30 05/28/24 18:16 05/28/24 18:30
05/27/24 05/28/24 05/29/24
06:59 06:59 06:59
Actual Weight 59.8 kg 60.9 kg
Lab Results
05/28/24 08:40
05/28/24 08:40
WBC 12.3 10^3/uL (4.8-10.8) H 05/28/24 08:40
Hgb 7.0 g/dL (12.0-16.0) L 05/28/24 08:40
Hct 21.4 % (37.0-47.0) L 05/28/24 08:40
Plt Count 108 10^3/uL (130-400) L 05/28/24 08:40
Physical Exam
General: Other (Looks uncomfortable writhing in bed. Not answering appropriately.)
GI: Soft, Non Tender and Non Distended
Data Reviewed
-
CT Scan: Image Personally Visualized and interpreted, Report Reviewed by me and Discussed with Physician
Ultrasound: Image Personally Visualized and interpreted, Report Reviewed by me and Discussed with Physician
Labs: Labs Reviewed by me and Discussed with Physician
Total Time Spent with Patient (in minutes): 60
Assessment / Plan
-
This is an 83-year-old female with complex medical history found to have altered mental status and gram-negative bacteremia. LFTs significantly elevated. An ultrasound demonstrated dilated gallbladder as well as CBD indicating an obstruction of
the duct. While choledocholithiasis is certainly possible, an ampullary mass is also certainly in the differential given her age.
No acute surgical intervention warranted at this time. While a hydropic gallbladder could indicate chronic cholecystitis, in the absence of any stone disease it is more likely that their biliary system is under pressure due to distal obstruction.
While cholecystostomy tube can be used to decompress the biliary system in a demented patient who might inadvertently pull it out this may lead to more harm than good.
Would be reasonable to get an MRI though doubt she would be able to lie still enough for us to obtain one. A CT abdomen pelvis with IV contrast may be helpful to ascertain if there is any mass in the ampullary region or stone disease.
I think first and foremost however we should discuss goals of care with the family.
General surgery will follow peripherally, please call with any questions or concerns.
Addendum:
CT scan reviewed, unfortunately performed without contrast so unable to delineate all that much but there is no evidence of stones in the gallbladder or the biliary tree. Unable to evaluate for an ampullary mass but the pancreatic duct does not
appear to be dilated
[2024-05-28] MEDS: DAKIN'S SOLUTION 0.125% 1/4 STRENGTH 473 ML TOPICAL (22:17)
[2024-05-29] VITALS (43 sets, daily range): BP systolic 72–131; BP diastolic 43–89
[2024-05-29] MEDS: D10W 1000 IV ×2 (02:10→18:20)
[2024-05-29 03:23] LABS: Glucose - Point of Care 145 mg/dl (70-99)
--- NOTE | 2024-05-29 04:17 | PTCARENOTE ---
Pt moans and groans when attempting to do oral care. HOB 30 degrees. Suction at bedside. 3L NC in place, moist cough. NSR w/ BBB & 1st degree on tele. She does withdrawal her arms when RN attempts to access IVs and appears to get agitated, otherwise
does not move in bed. Repositioned throughout the night, heels floated. RUE midline with sanguinous dressing on gauze. Right forearm with old infiltration site, warm.. VAT aware and at bedside to visualize. Right tunneled cath dressing intact. Wound
care done to sacrum per orders. Lata kurtisgger utilized for few hours for temp goal >97. Levo gtt stopped, MAPs decreased to 50s so gtt restarted and infusing at this time; refer to worklist. 0300 blood sugar 145. Droplet precautions for +influenza.
Plan for HD today. Rounding q1 hour. Bed alarm set for safety.
[2024-05-29] MEDS: ZOSYN 50 IV ×3 (05:22→22:50)
[2024-05-29] MEDS: PROTONIX IV 40 MG IV (07:54)
[2024-05-29] MEDS: HEPARIN 5000 UNITS SC ×2 (07:54→22:51)
[2024-05-29] MEDS: NSS (PRESERVATIVE FREE) 10 ML IV (07:54)
[2024-05-29] MEDS: DAKIN'S SOLUTION 0.125% 1/4 STRENGTH 473 ML TOPICAL ×2 (07:55→22:51)
[2024-05-29] MEDS: FLEXBUMIN 25% FOR HEMODIALYSIS 12.5 GRAMS IV ×2 (08:20→10:25)
[2024-05-29] MEDS: MANNITOL 25% 12.5 GRAMS IV ×2 (08:25→10:34)
[2024-05-29] MEDS: RETACRIT 10000 UNITS IV (08:41)
--- NOTE | 2024-05-29 08:44 | W.PN.NEPH.PH ---
Today's Communication / Plan
-
HD
Assessment/Plan
-
83-year-old female with extensive past medical history was brought to the emergency department via EMS from detention after she was found to be bradycardic and hypotensive.
History obtained from chart records She is known to have history of CKD and recently started on dialysis in April, dysphagia, GERD, hypertension hyperlipidemia, chronic atrial fibrillation
Not anticoagulated, recent admission at [facility] in April for sepsis after a prior admission for hip fracture.
Impression.
ESRD. [facility] [place]
Bradycardia and hypotension.
Sepsis and possible UTI.
Transaminitis= likely hemodynamically mediated.
Chronic atrial fibrillation.
Positive influenza A.
Anemia
left pleural effusion
Ao dissection, chronic
Plan.
HD today, was too unstable yesterday for HD
UF will be limited by pressure
follow Hgb
keep MAP > 65
follow LFT trend
avoid gadolinium for now
prognosis is poor
GOC discussion between primary team and family
critical care time 31 minutesr
-
-
Date of Service: May 29, 2024
CC / HPI / ROS
-
Chief Complaint:
ESRD
History of Present Illness:
critically ill. on pressors. BP low stable
HD today
on abx for sepsis
on tamiflu for influenza
Review of Systems:
lethargic, unarousable
no fever, on 2lit O2
Labs
-
Labs:
eGFR 20.83 05/28/24 08:40
Bqf-Y-Koxtripxhgn Pept Cancelled 05/27/24 00:42
Physical Exam
-
Vital Signs:
Vital Signs
Temp Pulse Resp BP Pulse Ox
97.7 F 68 26 98/51 99
05/29/24 07:54 05/29/24 06:30 05/29/24 06:30 05/29/24 06:17 05/29/24 06:30
Cardiovascular:: Regular rate and rhythm
Respiratory:: Right: Coarse (decreased BS left)
Lung Excursion:: Normal
Abdomen:: Nontender and Soft
Bowel Sounds:: Normal
Extremity Edema:: +3: Bilateral: (thigh)
--- NOTE | 2024-05-29 08:46 | W.PN.GI.CBS2 ---
Today's Communication / Plan
-
Unable to get MRI due to inability to cooperate for test and low GFR unable to get contrast
Case d/w hospitalist and renal
Consider goals of care discussion
GI will sign off please call for ?
Assessment / Plan
-
Pt is a 83yo with multiple medical issues CHF, IN, GERD, ischemic CM, dementia , UTI's, cervical mass, anemia, afib not on AC, 05/2023 perf stomach ulcer with repair with compilation of Lower Gi bleed with rectal ulcer with clip and epi during
admission, DVT's, s/p fall with hip fracture 03/2024 ORIF and LE hematoma, PNA, new ESRD with HD with recurrent hospital admission over last year to [facility]. She recently moved to SNF locally due to dialysis and now presents to
with bradycardia, hypotension and change in mental status. Pt unable to give history. Per son No hx liver issues. Unsure of bacteremia but has had UTI's in past. On return bili 6.2, d bili 4.8, AST 277, ALT 146, alk phos 999. lipase 13 WBC
with rise to 12.3 after admission, hbg 7, platelet 108. Na 130, K 4.2, creat 2.3 glucose 51, procal 1.17.
05/07/24- [place] labs with steffanie 1.6, AST15, ALT 10, alk phos 203.
Impression
-sepsis/bacteremia- gram neg /hypothermia/ hypotension
-elevated LFT's
-flu A +
-s/p fall - ORIF hip 03/2024
-hx large hematoma right thigh 04/2024
-ESRD newly on HD
-prior hx UTI with noted bacteremia with proteus/strep with CTX-M gene resistance and U cx + klebsiella-- per epic chart
-perforated gastric ulcer with ex lap grahm patch and Lower GI bleed with rectal ulcer with clip placed 05/2023
Plan
- LFTs today pending
- Rise in LFTs likely reflection of her overall complex illness and possible sepsis
- Cannot evaluate for choledocholithiasis or chronic cholecystitis well without contrasted MRI/MRCP which is not possible given her poor GFR (case d/w renal) and also her inability to cooperate for MRI
- At this juncture prognosis guarded
- Consider Goals of care D/w family/patient. Above d/w hospitalist
GI will follow peripherally please call for ?
Subjective
Subjective
Date of Service: May 29, 2024
Getting HD today. Mental status not improved.
Objective
Data Reviewed
Laboratory Data:
Laboratory Results
PT 14.7 Sec (11.4-14.6) H 05/27/24 05:54
INR 1.12 05/27/24 05:54
Magnesium 1.9 mg/dl (1.6-2.3) 05/28/24 08:40
Total Bilirubin 7.2 mg/dl (0.2-1.3) H 05/28/24 08:40
AST 399 U/L (14-36) H 05/28/24 08:40
ALT 209 U/L (0-35) H 05/28/24 08:40
Alkaline Phosphatase 1013 U/L (38-126) H 05/28/24 08:40
Lipase 13 U/L (23-300) L 05/28/24 08:40
Vital Signs and I&O:
Vital Signs
Temp Pulse Resp BP Pulse Ox
97.7 F 68 26 98/51 99
05/29/24 07:54 05/29/24 06:30 05/29/24 06:30 05/29/24 06:17 05/29/24 06:30
I&O
05/28/24 05/29/24 05/30/24
06:59 06:59 06:59
Intake Total 320 / 320 1092 / 1092
Output Total 0 / 0
Balance 320 / 320 1092 / 1092
Physical Exam
Physical Exam
GEN: No acute distress, sleepy
HEENT: anicteric eyes closed, getting HD
NEURO: not responsive
--- NOTE | 2024-05-29 08:48 | W.PN.NEPH.HD ---
Assessment
-
Seen on HD. BP stable low on pressors, access ok. unarousable
Progress Note - Hemodialysis
-
Date of Service: May 29, 2024
Duration: 30 minutes and 3 hours
Potassium Bath: 3
Calcium Bath: 2.5
Opti-Dialyzer: 160
Ultrafiltration: Other (1.5kg)
Blood Flow: 400
Dialysate Flow: 600
Heparin: no
EPO: 49678 units
[2024-05-29 08:54] LABS: Hematocrit 24.7 % (37.0-47.0); Hemoglobin 7.9 g/dL (12.0-16.0); Mean Corpuscular Hgb 29.7 pg (27.0-31.0); Mean Corpuscular Volume 92.9 fL (81.0-99.0); Mean Platelet Volume 10.3 fL (7.4-10.4); Platelet Count 81 10^3/uL (130-400); Red Blood Cell Count 2.66 10^6/uL (4.20-5.40); Red Cell Dist. Width 18.7 % (11.5-14.5)
[2024-05-29 08:59] LABS: Hepatitis B Surface Antigen Negative (Negative)
[2024-05-29 09:03] LABS: ALT (SGPT) 195 U/L (0-35); AST (SGOT) 308 U/L (14-36); Alkaline Phosphatase 852 U/L (38-126); Blood Urea Nitrogen 19 mg/dl (7-17); Calcium 8.4 mg/dl (8.4-10.2); Carbon Dioxide 20 mmol/L (22-30); Chloride 100 mmol/L (98-107); Glucose 138 mg/dl (70-99); Potassium 3.8 mmol/L (3.5-5.1); Sodium 129 mmol/L (135-145); Total Bilirubin 7.8 mg/dl (0.2-1.3); Total Protein 4.4 g/dl (6.3-8.2); eGFR 17.19
--- NOTE | 2024-05-29 09:15 | W.PN.HOSP.TC ---
Today's Communication/Plan
-
Repeat [facility] discussion with son today
continue abx
HD per nephro
wean off pressors
Assessment / Plan
Assessment / Plan
CT a/p
Diffuse anasarca with diffuse subcutaneous edema.
Changes suggesting aortic dissection involving the visualized descending thoracic aorta as well as the upper abdominal aorta. Timeframe of this probable dissection is uncertain. Please correlate with clinical history. As warranted, if clinically
feasible, further evaluation with CT angiography of the chest and abdomen could be performed.
Bilateral pleural effusions, left greater than right. Adjacent compressive atelectasis within lower lungs. Additionally, there is patchy parenchymal opacity within the right middle lobe and the anterior aspect of the right lower lobe, morphologic
appearance suspicious for pneumonia.
Coronary artery calcifications are present. Please correlate with symptoms of and risk factors for coronary artery disease, with further workup as clinically appropriate.
Gallbladder is distended with no evidence for calcified gallstones.
The adrenal glands and the pancreas are not well visualized, especially because of motion artifact.
Moderate atrophy of both kidneys. Large 8 cm cyst arising from the right kidney.
Asymmetric thickening of the left wall of the urinary bladder, suggestive of cystitis.
Compression fractures involving T12 and L1, exact age uncertain. No evidence for retropulsed bony fragment.
Low-density in the central uterus, which appears to be in the region of the endometrial canal, measuring 8 mm. This could represent fluid within the endometrial canal, but could also represent endometrial thickening from a proliferative process, and
endometrial carcinoma is not excluded. When clinically feasible, advise a follow-up pelvic ultrasound.

1. Sepsis with septic shock
Hafnei alvei bacteremia
-Possible source of urinary tract infection versus sacral decubitus vs HD cath infection
-Currently on Zosyn
-Blood culture 2 sets growing Hafnia alvei, partially drug-resistant.
-Patient requiring Levophed support, wean off as possible
-ID following and help appreciated.
2. ESRD on hemodialysis
-Recently started in May 05
-Nephrology following and getting HD today.
3. Acute normocytic anemia
Reported PUD/perf
-Reported history of perforated gastric ulcer last year, records requested from previous hospital
-Hemoglobin stabilized at 8 after 1 u prbc, continue monitor.
-Monitor for any GI blood loss
-Not on AC
4. Influenza A infection
-CXR reviewed
-unable to take oral tamiflu due to encephalopathy
5. Hypoglycemia
-Sepsis/decreased oral intake related
-D50 followed by D10 ordered for low blood glucose in the morning, repeat periodic accuchecks
6. B/l pleural effusion : L>R
-Per verbal report from family this is a known finding
-Lung visible on CTAP, showing bilateral pleural effusion with compression atelectasis
-questioning if there is a component of trapped lung
7. Stage IV Sacral decubitus - POA
-See wound RN note for further detail
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
-Poor prognosis
8. UTI
-covered with zosyn, f/u urine cs report
9. R/o Chronic cholecystitis
Acute transaminitis
Jaundice - direct dominant
-GB US showing hydropic GB
-CBD 9.5mm
-GS/GI consulted, CT abdomen pelvis without contrast done with report as above
-GI/GS input noted, planning to re-discuss GOC when son visits.
10. TME
- due to above mentioned issues
-minimally responsive today
11. Thoracic/Abdominal aortic aneurysm
Chronic aortic dissection
-CTA c/a/p report from [facility]
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 Celiac trunk and mesenteric arteries: No occlusion or significant stenosis. Renal arteries: No occlusion or significant stenosis. Right iliac
arteries: No occlusion or significant stenosis. Left iliac arteries: No occlusion or significant stenosis. '
-CT a/p this admit showing similar findings.
12. H/o PE s/p IVC filter
-Diagnosed for pulmonary embolism on recent admission, IVC filter placed as AC contra-indicated with GI bleed h/o
T12/L1 compression fracture
Endometrial thickening of unknown reason
DNR
Heparin subq
05/28 GOC discussion done over the phone with patient's son, who is still hopeful that patient will improve. I have clarified that patient had a multitude of medical issues ongoing and with overall downward trend in quality of life patient getting
appropriate to be on hospice. Plan to rediscuss based on patient clinical course.
Prognosis is poor in my opinion.
Total critical care time 37 mins . Total critical care time documented does not include time spent on separately billed procedures or the services of residents, students, nurses or physician assistants. I personally saw and examined the patient. I
have reviewed all diagnostic interpretations and treatment plans as written. I was present for the arroyo portions of any procedures performed and the inclusive time noted in any critical care statement. Critical care time includes patient management
by me, time spent at the patients bedside, time to review lab and imaging results, discussing patient care, documentation in the medical record, and time spent with the family or caregiver.
Anticipated Discharge: 24 - 48 hours
Subjective/Interval History
-
Date of Service: May 29, 2024
minimally responsive in the morning today
remains on vasopressor 2 mcg/min
remains hypothermic
Objective Data
-
Labs:
Laboratory Results
05/29/24
07:34
WBC 11.0 H
Hgb 7.9 L
Hct 24.7 L
Plt Count 81 L D
Sodium 129 L
Potassium 3.8
Chloride 100
Carbon Dioxide 20 L
BUN 19 H
Creatinine 2.7 H
Glucose 138 H
Calcium 8.4
Total Bilirubin 7.8 H
AST 308 H
ALT 195 H
Alkaline Phosphatase 852 H
Vital Signs:
Vital Signs
Temp Pulse Resp BP Pulse Ox
97.7 F 60 18 103/52 96
05/29/24 07:54 05/29/24 09:00 05/29/24 09:00 05/29/24 09:00 05/29/24 09:00
I&O
05/28/24 05/29/24 05/30/24
06:59 06:59 06:59
Intake Total 320 / 320 1092 / 1092
Output Total 0 / 0
Balance 320 / 320 1092 / 1092
Review of Systems
-
Unable to obtain full review of systems at this time due to: Acuity
Physical Exam
-
General: Appears Chronically Ill; Negative Appears in Distress
HEENT: Oxygen
Respiratory: Rhonchi
Cardiac: Regular Rhythm and S1/S2; Negative Murmur or Rub
Musculoskeletal: No Edema
Neuro: Negative Awake or Oriented
--- NOTE | 2024-05-29 12:53 | W.PN.ID1 ---
Date of Service
Date of Service: May 29, 2024
Today's Communication
Continue current antibiotics. Await further discussion regarding goals of care.
Assessment / Plan
Influenza A infection
Leukocytosis
Bacteremia with gram-negative rods
� Sources include right ACW HD cath, large sacral decubiti, other
Transaminitis
Elevated procalcitonin
Large partially necrotic sacral decubidi
A-fib
Dementia
GERD
Dyslipidemia
Hypothyroidism
ESRD on HD (M/W/F)
Recommendation:
Oseltamavir ordered. Given depressed mental status, may require NG/Dobbhoff administration.
Continue with empiric Zosyn. Dose is appropriate for hemodialysis.
Consider general surgery evaluation for wound debridement.
Await further culture data to guide antimicrobial therapy selection and potential de-escalation
Local care to the sacral wound for now.
Trend LFTs
Agree with discussions of goals of care.
Given current clinical presentation of patient (dementia, large sacral decub (which has little chance of ever closing)), patient appears hospice appropriate.
Aggressive medical care will not change overall quality of life in any meaningful way, potentially increasing suffering, and likely serves only to prolong her inevitable passing.
����������������������������������������������������������
Chief Complaint
-: Leukocytosis, Bacteremia and Other (Influenza)
Subjective / Review of Systems
Patient seen and examined. No significant changes overnight.
Review of Systems: No Fever
Vital Signs / Physical Exam
Vital Signs
Vital Signs
Temp Pulse Resp BP Pulse Ox
97.7 F 85 17 129/58 96
05/29/24 07:54 05/29/24 11:45 05/29/24 11:45 05/29/24 11:35 05/29/24 11:45
Physical Exam
Constitutional: Comfortable, Chronically Ill and Non-toxic
Eyes: Sclera Anicteric
Cardiovascular: S1/S2; Negative S3/S4
Pulmonary: Non Labored
Gastrointestinal: Soft, Non Distended and Normal Bowel Sounds
Wound: Other (large stage IV sacral decubidi with dermal necrosis noted in several areas. Positive significant malodor.)
Neurological: Other (Nonverbal. Arousable to touch.)
Psychological: Calm
Objective Data
Lab Data
Lab Results
05/29/24 07:34
05/29/24 07:34
PT 14.7 Sec (11.4-14.6) H 05/27/24 05:54
INR 1.12 05/27/24 05:54
Lactic Acid 1.2 mmol/L (0.7-2.0) 05/27/24 05:54
Total Bilirubin 7.8 mg/dl (0.2-1.3) H 05/29/24 07:34
AST 308 U/L (14-36) H 05/29/24 07:34
ALT 195 U/L (0-35) H 05/29/24 07:34
Alkaline Phosphatase 852 U/L (38-126) H 05/29/24 07:34
Most recent labs reviewed.
Micro Results:
05/27/24 05:54 Blood Culture - Preliminary
Blood/Venous Hafnei alvei
Gram Stain - Final
05/27/24 06:21 Blood Culture - Preliminary
Blood/Venous Hafnei alvei
Gram Stain - Preliminary
05/27/24 04:59 Urine Culture - Final
Urine
05/27/24 18:37 MRSA Screen - Final
Nose No Methicillin Resistant Staphylococcus aureus isolated.
05/27/24 06:03 Nasal Screen MRSA (PCR) - Final
Nose MRSA not detected - performed by PCR methodology.
05/27/24 05:28 Influenza Types A & B (DARLEEN) - Final
Nasal Swab Influenza A Positive, NAAT
Imaging:
05/27/2024 CXR (portable): Moderate to large left pleural effusion with probable underlying compressive atelectasis in the left lower lung. Mild acute versus chronic interstitial airway disease at the right lung base.
--- NOTE | 2024-05-29 18:13 | W.PN.UPDATE ---
Update Note
Progress Note Update
Patient seen at bedside with son present in room
Overall prognosis discussed, reviewed stage IV sacral decubitus images with son and explained sacral wound likely will not heal
With added other active medical issues and chronic comorbidities patient is appropriate for hospice initiation
Son tearful and understands this is the right thing to do for her mother at this point.
No close family member living in the area except 1 sister in [place]
Patient have a to attend and I have discussed that hospice staff will be in touch tomorrow.
Patient will qualify for inpatient hospice as currently unresponsive and on requiring vasopressors.
Pain control and comfort is priority at this point.
Additional time spent : 20 mins
--- NOTE | 2024-05-29 19:15 | PTCARENOTE ---
Patient AOx0. Patient is lethargic, agitated, flat affect, and uncooperative. Bed alarm on and audile. 3L NC. NSR with BBB and first degree on monitor. Levo gtt titrated per order. R sided JVD. Rectal temp probe in place. Patient is oliguric due to
ESRD. HD completed. Strict NPO per speech. Wound care completed with wound care nurse. IVF running per order. Call rolle within reach, bed in lowest position, and bed of wheels locked.
[2024-05-30] VITALS (14 sets, daily range): BP systolic 70–117; BP diastolic 32–73
[2024-05-30] MEDS: LEVOPHED 250 IV (04:12)
--- NOTE | 2024-05-30 06:39 | DOWNTIME ---
There was a [employer] Client [employer] Verification Technician Downtime on 05/30/2024 from 0100 to 05/30/2023 at 0235 . Downtime documentation of patient's care, including medication administrations, has been reconciled in the electronic record per guidelines. Refer to the
patient's paper chart under the miscellaneous tab to see printed paper medication records and downtime forms.
[2024-05-30] MEDS: ZOSYN 50 IV (06:42)
--- NOTE | 2024-05-30 06:52 | PTCARENOTE ---
No acute changes overnight. No void or BM. CHG done. NSR on tele. Levo gtt continues. Rounding q1 hour. Repositioned frequetly.
[2024-05-30] MEDS: HEPARIN 5000 UNITS SC (08:41)
[2024-05-30] MEDS: NSS (PRESERVATIVE FREE) 10 ML IV (08:43)
[2024-05-30] MEDS: PROTONIX IV 40 MG IV (08:43)
[2024-05-30] MEDS: D10W 1000 IV (08:44)
--- NOTE | 2024-05-30 09:53 | HOSPNOTE ---
Spoke with son and discussed comfort measures. The son is in agreement with keeping the patient comfortable and stopping all medications and focus on pain management and managing agitation. Attending and CM aware of plan.
--- NOTE | 2024-05-30 09:54 | CM ---
Patient from [facility] with Hx ESRD on HD, dementia. Influenza +. GOC discussion by MD last evening.
Messages with Dr Huang and [facility]; will start patient on comfort care and can switch to hospice in a day or so as needed.
Spoke with patient's son Wu; he agrees to speaking with hospice nurse.
Explained hospice philosophy & benefits if hospice.
Son is hoping patient will remain here at the hospital.
Wu is willing to talk with hospice nurse and is available for the next 20 mins by phone, he is on his way to his uncle's . Otherwise he will be available after 2pm today.
Plan comfort care.
--- NOTE | 2024-05-30 10:42 | PTCARENOTE ---
Pt now comfort for tx. all meds DC . Pt unsesponsive at this time.
--- NOTE | 2024-05-30 13:39 | W.PN.HOSP.TC ---
Today's Communication/Plan
-
initiate comfort measures
Assessment / Plan
Assessment / Plan
05/31
Hospice consulted
see GOC discussion from yesterday
Patient started on comfort measures after discussion with son
Stop vasopressors.
Stop abx and all other life prolonging medication
PRN dilaudid ordered, morphine drip if require repeated dosing of dilaudid.

CT a/p
Diffuse anasarca with diffuse subcutaneous edema.
Changes suggesting aortic dissection involving the visualized descending thoracic aorta as well as the upper abdominal aorta. Timeframe of this probable dissection is uncertain. Please correlate with clinical history. As warranted, if clinically
feasible, further evaluation with CT angiography of the chest and abdomen could be performed.
Bilateral pleural effusions, left greater than right. Adjacent compressive atelectasis within lower lungs. Additionally, there is patchy parenchymal opacity within the right middle lobe and the anterior aspect of the right lower lobe, morphologic
appearance suspicious for pneumonia.
Coronary artery calcifications are present. Please correlate with symptoms of and risk factors for coronary artery disease, with further workup as clinically appropriate.
Gallbladder is distended with no evidence for calcified gallstones.
The adrenal glands and the pancreas are not well visualized, especially because of motion artifact.
Moderate atrophy of both kidneys. Large 8 cm cyst arising from the right kidney.
Asymmetric thickening of the left wall of the urinary bladder, suggestive of cystitis.
Compression fractures involving T12 and L1, exact age uncertain. No evidence for retropulsed bony fragment.
Low-density in the central uterus, which appears to be in the region of the endometrial canal, measuring 8 mm. This could represent fluid within the endometrial canal, but could also represent endometrial thickening from a proliferative process, and
endometrial carcinoma is not excluded. When clinically feasible, advise a follow-up pelvic ultrasound.
1. Sepsis with septic shock
Hafnei alvei bacteremia
-Possible source of urinary tract infection versus sacral decubitus vs HD cath infection
-Currently on Zosyn
-Blood culture 2 sets growing Hafnia alvei, partially drug-resistant.
-Patient requiring Levophed support, wean off as possible
-ID following and help appreciated.
2. ESRD on hemodialysis
-Recently started in May 05
-Nephrology following and getting HD today.
3. Acute normocytic anemia
Reported PUD/perf
-Reported history of perforated gastric ulcer last year, records requested from previous hospital
-Hemoglobin stabilized at 8 after 1 u prbc, continue monitor.
-Monitor for any GI blood loss
-Not on AC
4. Influenza A infection
-CXR reviewed
-unable to take oral tamiflu due to encephalopathy
5. Hypoglycemia
-Sepsis/decreased oral intake related
-D50 followed by D10 ordered for low blood glucose in the morning, repeat periodic accuchecks
6. B/l pleural effusion : L>R
-Per verbal report from family this is a known finding
-Lung visible on CTAP, showing bilateral pleural effusion with compression atelectasis
-questioning if there is a component of trapped lung
7. Stage IV Sacral decubitus - POA
-See wound RN note for further detail
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
-Poor prognosis
8. UTI
-covered with zosyn, f/u urine cs report
9. R/o Chronic cholecystitis
Acute transaminitis
Jaundice - direct dominant
-GB US showing hydropic GB
-CBD 9.5mm
-GS/GI consulted, CT abdomen pelvis without contrast done with report as above
-GI/GS input noted, planning to re-discuss GOC when son visits.
10. TME
- due to above mentioned issues
-minimally responsive today
11. Thoracic/Abdominal aortic aneurysm
Chronic aortic dissection
-CTA c/a/p report from [facility]
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 Celiac trunk and mesenteric arteries: No occlusion or significant stenosis. Renal arteries: No occlusion or significant stenosis. Right iliac
arteries: No occlusion or significant stenosis. Left iliac arteries: No occlusion or significant stenosis. '
-CT a/p this admit showing similar findings.
12. H/o PE s/p IVC filter
-Diagnosed for pulmonary embolism on recent admission, IVC filter placed as AC contra-indicated with GI bleed h/o
T12/L1 compression fracture
Endometrial thickening of unknown reason
DNR
Heparin subq
05/28 GOC discussion done over the phone with patient's son, who is still hopeful that patient will improve. I have clarified that patient had a multitude of medical issues ongoing and with overall downward trend in quality of life patient getting
appropriate to be on hospice. Plan to rediscuss based on patient clinical course.
Prognosis is poor in my opinion.
05/29
Patient seen at bedside with son present in room
Overall prognosis discussed, reviewed stage IV sacral decubitus images with son and explained sacral wound likely will not heal
With added other active medical issues and chronic comorbidities patient is appropriate for hospice initiation
Son tearful and understands this is the right thing to do for her mother at this point.
No close family member living in the area except 1 sister in [place]
Patient have a to attend and I have discussed that hospice staff will be in touch tomorrow.
Patient will qualify for inpatient hospice as currently unresponsive and on requiring vasopressors.
Pain control and comfort is priority at this point.

Anticipated Discharge: 24 - 48 hours
Subjective/Interval History
-
Date of Service: May 30, 2024
Patient remains minimally responsive
Continue to remain on vasopressor
No acute issues reported overnight
Objective Data
-
Labs:
Laboratory Results
05/30/24
06:00
WBC Cancelled
Hgb Cancelled
Hct Cancelled
Plt Count Cancelled
Sodium Cancelled
Potassium Cancelled
Chloride Cancelled
Carbon Dioxide Cancelled
BUN Cancelled
Creatinine Cancelled
Glucose Cancelled
Calcium Cancelled
Total Bilirubin Cancelled
AST Cancelled
ALT Cancelled
Alkaline Phosphatase Cancelled
Vital Signs:
Vital Signs
Temp Pulse Resp BP Pulse Ox
96.8 F L 79 19 99/46 97
05/30/24 07:05 05/30/24 10:00 05/30/24 10:00 05/30/24 10:00 05/30/24 10:00
I&O
05/29/24 05/30/24 05/31/24
06:59 06:59 06:59
Intake Total 1092 / 1092 100 / 100
Output Total 0 / 0 0 / 0
Balance 1092 / 1092 100 / 100
Review of Systems
-
Unable to obtain full review of systems at this time due to: Acuity
Physical Exam
-
General: Appears Chronically Ill; Negative Appears in Distress
HEENT: Oxygen
Cardiac: Regular Rhythm and S1/S2; Negative Murmur or Rub
Musculoskeletal: No Edema
Neuro: Negative Awake or Oriented
--- NOTE | 2024-05-30 14:47 | PTCARENOTE ---
When checking on pt , pt has no resp no heart beat. DR Huang notified
--- NOTE | 2024-05-30 14:59 | W.PN.DEATH ---
Pronouncement of
-
Called to see patient to pronounce.
No spontaneous heart tones or respirations noted.
No spontaneous neurological signs of life
Patient not responsive to verbal stimuli.
Patient is pronounced .
Time of : 14:45
Date of : 05/30/24
Cause of : Septic shock, Hyponatremia
Family Notified: Yes
--- NOTE | 2024-05-30 15:08 | PTCARENOTE ---
Pt pronounced . Dr Huang talked to son Wu who was distraught and needs a bit of time to decide if he is coming to [facility]
--- NOTE | 2024-05-30 16:00 | PTCARENOTE ---
Martin Washburn called he is on his way to [facility]
--- NOTE | 2024-05-30 16:15 | PTCARENOTE ---
Martin Washburn was here to say goodbye.
--- NOTE | 2024-05-30 17:12 | PTCARENOTE ---
Post mortem care done
--- NOTE | 2024-05-31 08:14 | W.DCSUMMARY ---
Discharge Summary
Discharge Data
Date of Admission: 05/27/24
Date of Discharge: 05/30/24
-
Pending Results: No
Hospital Course
This is a summary on Ms. Jo aguiar, who on 05/30/24 at 1445
List of diagnosis:
Sepsis with septic shock
Hafnia alvei bacteremia
Influenza A viral pneumonia
Stage IV sacral decubitus ulcer
Suspected chronic cholecystitis
Combined systolic/diastolic heart failure
Episode of hypoglycemia
Bilateral pleural effusion
Urinary tract infection
Acute transaminitis
Acute jaundice
Toxic metabolic encephalopathy
End-stage renal disease on hemodialysis
Moderate pulmonary hypertension
Acute normocytic anemia
History of peptic ulcer disease and perforation
History of gastrointestinal bleed
Thoracic/abdominal aortic aneurysm
Chronic aortic dissection
Recent pulmonary embolism requiring inferior vena cava filter placement
T12-L1 compression fracture
Chronic debility
Hospital course:
Patient is 83-year-old female with no mentioned past medical history was brought into ER by EMS after patient was found to be bradycardic and hypotensive and chcf. Patient had a complex medical history in last 1 year with last admission in
[facility] patient was found to have multiple pulmonary emboli/sepsis/acute renal failure necessitating initiation of hemodialysis. Patient had sacral decubitus ulcer with advancing cognitive impairment suspicious of dementia. Post
medical sedation patient was discharged to care home facility where patient was noted to have new hypotension/bradycardia and was sent in.
In ER patient was provided atropine, EKG did not show any high degree blocks. Patient was provided IV fluid boluses with which blood pressure improved although later required to be started on vasopressors for blood pressure support. Echocardiogram
was done which showed decreased EF of 35% and stage II diastolic dysfunction.
Patient was also noted to be septic and started on broad-spectrum antibiotic. Possible source was felt to be urinary tract infection, sacral decubitus, cholecystitis or HD catheter infection. Infection disease physicians were involved in care and
antibiotics were adjusted. Blood cultures were collected was part of workup and later identified to have Hafnia alvei bacteremia. Hafnia alvei is predominantly gastrointestinal organism similar to Enterobacteriaceae and thus in my opinion likely
source was from sacral decubitus with unavoidable soiling of the wound during usual care.
Patient also had abdominal imaging which showed question of possible chronic cholecystitis. There were associated transaminitis and direct dominant hyperbilirubinemia. GI and general surgery was involved in care and ideally MRCP would have been
recommended although patient and her state was not safe to undergo MRI scan. Surgery also felt patient would not have been stable enough to go through cholecystostomy tube placement. This was planned to be managed medically with hope of eventual
imaging if patient condition would have improved.
Patient also was found to having influenza A viral infection. Chest x-ray was relatively clear. Tamiflu was prescribed although patient was sedated/encephalopathic and was not able to take any doses.
Of note incidentally patient was found to have abdominal aortic aneurysm with dissection on CT scan of abdomen. This was discussed with POA and once records from previous hospital available this was deemed to be a chronic finding. No further
imaging or workup was done regarding this issue.
Patient also had episodes of hypoglycemia due to poor oral intake, required to be started on dextrose containing IV fluid for maintenance of euglycemia.
Patient had bilateral pleural effusion with mainly involving left side more than right. Cross-section of's lung on CT abdomen pelvis showing some compression atelectasis as well. There was consideration for possible diagnostic left thoracentesis
to rule out any infected collection.
Despite maximal medical therapy patient condition was deteriorating and in light of extensive stage IV decubitus sacral ulcer patient was considered to be appropriate for hospice care. This was discussed with patient son who was agreeable to the
plan. Patient was switched to comfort care initially with plan to transition to hospice care, when patient on comfort care on 05/30/2024 at 1445
Discharge Plan
-
Patient Disposition:
Date/Time
Date/Time: 05/30/24 14:45
Discharge Date and Time
Discharge Date/Time: 05/30/24 14:45
Print Language: ICELANDIC
== END 2024-05-30 14:45 | disposition expired | DRG 871 ==
LOC: IMU 05:49
PROVIDERS: Internal Medicine; ADMITTING PHYSICIAN Internal Medicine; ATTENDING PHYSICIAN Hospitalist; EMERGENCY PHYSICIAN Student in an Organized Health Care Education/Training Program; FAMILY PHYSICIAN Family Medicine; OTHER PHYSICIAN Internal Medicine Gastroenterology; OTHER PHYSICIAN Internal Medicine Infectious Disease; OTHER PHYSICIAN Internal Medicine Nephrology; OTHER PHYSICIAN Surgery
DX: A41.9 Sepsis, unspecified organism (principal); L89.154 Pressure ulcer of sacral region, stage 4; N18.6 End stage renal disease; R65.21 Severe sepsis with septic shock; E87.20 Acidosis, unspecified; I13.2 Hypertensive heart and chronic kidney disease with heart failure and with stage 5 chronic kidney disease, or end stage renal disease; N39.0 Urinary tract infection, site not specified; E87.1 Hypo-osmolality and hyponatremia; J90 Pleural effusion, not elsewhere classified; I48.20 Chronic atrial fibrillation, unspecified; Z66 Do not resuscitate; Z51.5 Encounter for palliative care; D64.9 Anemia, unspecified; F03.90 Unspecified dementia, unspecified severity, without behavioral disturbance, psychotic disturbance, mood disturbance, and anxiety; Z79.899 Other long term (current) drug therapy; Z87.440 Personal history of urinary (tract) infections; Z99.2 Dependence on renal dialysis; J10.1 Influenza due to other identified influenza virus with other respiratory manifestations
CPT/HCPCS: 51701; 71045; 74176; 76700; 80048; 80053; 80202; 81003; 81015; 82248; 82962; 83605; 83690; 83735; 84145; 84439; 84443; 85025; 85027; 85610; 86850; 86900; 86901; 86920; 87040; 87070; 87086; 87149; 87186; 87205; 87340; 87502; 87641; 87811; 92610; 93005; 93306; 93971; 96360; 99285; G0257; P9016; P9047; Q5106